=== PATIENT | female | born 1935 | race Caucasian/White ===

== ENCOUNTER 2019-07-17 14:43 | Inpatient (IN) | payer MEDICARE ==
--- NOTE | 2019-07-17 15:14 | ED ---
General Adult HPI - General Chief complaint: Neuro Symptoms/Deficit Stated complaint: poss stroke Time Seen by Provider: 07/17/19 14:46 Source: patient, EMS, RN notes reviewed, old records reviewed Mode of arrival: EMS Limitations: altered mental status, physical limitation - History of Present Illness Initial comments: 83-year-old female presenting as transfer from outside facility for evaluation of confusion, expressive aphasia and concern for CVA. Patient had been seen initially for evaluation of confusion which had been present for approximately 48 hours. There was no focal findings on exam. Patient was outside of TPA window. She was evaluated at outside emergency department for suspected CVA and altered mental status and ultimately transferred for neurology evaluation. She has no complaints at the time my evaluation. She does report a fall which occurred several days ago. Uncertain if she hit her head but does not believe she did. Patient had been started on Keflex several days prior with concern for UTI. Denying any symptoms of dysuria, no vomiting, no fever. - Related Data Allergies Allergy/AdvReac Type Severity Reaction Status Date / Time aspirin Allergy Rash/Hives Verified 07/17/19 14:54 cefixime [From Suprax] Allergy Nausea & Verified 07/17/19 14:57 Vomiting ciprofloxacin [From Cipro] Allergy Unknown Verified 07/17/19 14:57 codeine Allergy Swelling Verified 07/17/19 14:57 ibuprofen [From Advil] Allergy Rash/Hives Verified 07/17/19 14:57 methylprednisolone Allergy Nausea & Verified 07/17/19 14:57 Vomiting Penicillins Allergy Rash/Hives Verified 07/17/19 14:57 prochlorperazine Allergy Unknown Verified 07/17/19 14:57 [From Compazine] tetracycline Allergy Rash/Hives Verified 07/17/19 14:57 Review of Systems ROS Statement: Those systems with pertinent positive or pertinent negative responses have been documented in the HPI. ROS Other: All systems not noted in ROS Statement are negative. Past Medical History Past Medical History: Coronary Artery Disease (CAD) History of Any Multi-Drug Resistant Organisms: None Reported Past Surgical History: Heart Catheterization, Hysterectomy Past Psychological History: Depression Smoking Status: Former smoker Past Alcohol Use History: None Reported Past Drug Use History: None Reported General Exam Limitations: altered mental status, physical limitation General appearance: alert Head exam: Present: atraumatic, normocephalic Eye exam: Present: normal appearance, PERRL ENT exam: Present: mucous membranes dry Neck exam: Present: normal inspection. Absent: tenderness, meningismus Respiratory exam: Present: normal lung sounds bilaterally. Absent: respiratory distress, wheezes Cardiovascular Exam: Present: regular rate, normal rhythm GI/Abdominal exam: Present: soft. Absent: distended, tenderness Extremities exam: Present: normal inspection, normal capillary refill. Absent: pedal edema Neurological exam: Present: alert, oriented X3, other (Mild dysarthria and expressive aphasia, no unilateral findings.). Absent: motor sensory deficit Psychiatric exam: Present: normal affect, normal mood Skin exam: Present: warm, dry, intact. Absent: cyanosis, diaphoretic Course Vital Signs 07/17/19 07/17/19 14:46 15:12 Temperature 97.9 F Pulse Rate 76 76 Respiratory 18 18 Rate Blood Pressure 187/76 168/71 O2 Sat by Pulse 97 97 Oximetry EKG Findings - EKG Comments: EKG Findings:: EKG: Normal sinus rhythm, rate of 81, WA interval 144, QRS duration 72, QTC 455, no ST segment elevation Medical Decision Making - Medical Decision Making 83-year-old female presenting for evaluation of dysarthria and expressive aphasia which is been ongoing for 48 hours. Patient sent for evaluation of CVA. Workup was reviewed from outside hospital, CT was performed which showed old frontal infarct, no acute intracranial hemorrhage or mass effect. Patient had white blood cell count 6.6, hemoglobin 11.6. Creatinine of 1.41 uncertain of baseline creatinine. Sodium was 1:30, lactic acid of 1.2. Urinalysis was negative for infection. Review the medical record I did not see any antiplatelet medication given and the patient does have history of aspirin ALLERGY I will give Plavix in the emergency department. She will be admitted with neurology on consult. I discussed case with Dr. Elizondo who will accept admission. Disposition Clinical Impression: Cerebrovascular accident (CVA) Disposition: ADMITTED IP TO THIS HOSP Condition: Stable Is patient prescribed a controlled substance at d/c from ED?: No Referrals: Rolando Thompson MD [Primary Care Provider] - 1-2 days Decision to Admit Reason: Admit from EC Decision Date: 07/17/19 Decision Time: 15:14
[2019-07-17] MEDS ORDERED: CLOPIDOGREL 75 MG TAB PO STA (15:19)
[2019-07-17] MEDS: ACETAMINOPHEN TAB 325 MG TAB PO PRN (15:49)
[2019-07-17] MEDS: SODIUM CHLORIDE 0.9% 1,000 ML IV SCH (16:42)
--- NOTE | 2019-07-17 17:17 | US ---
EXAMINATION TYPE: US carotid duplex BILAT DATE OF EXAM: 07/17/2019 COMPARISON: NONE CLINICAL HISTORY: 83-year-old female Stenosis. TECHNIQUE: Carotid duplex ultrasound examination. Indirect Doppler criteria was utilized. EXAM MEASUREMENTS: RIGHT: Peak Systolic Velocity (PSV) cm/sec ----- Right CCA: 64.4 ----- Right ICA: 111.3 ----- Right ECA: 87.4 ICA/CCA ratio: 1.7 RIGHT: End Diastole cm/sec ----- Right CCA: 21.8 ----- Right ICA: 35.6 ----- Right ECA: 4.5 LEFT: Peak Systolic Velocity (PSV) cm/sec ----- Left CCA: 88.5 ----- Left ICA: 124.6 ----- Left ECA: 52.2 ICA/CCA ratio: 1.4 LEFT: End Diastole cm/sec ----- Left CCA: 18.4 ----- Left ICA: 35.3 ----- Left ECA: 0.0 VERTEBRALS (direction of flow): Right Vertebral: Antegrade Left Vertebral: Antegrade Rhythm: Normal Mother'S Helper notes: Mild atherosclerotic changes with no significant velocity elevations. IMPRESSION: No hemodynamically significant internal carotid artery stenosis on either side. Criteria for Assigning % of Stenosis / Diameter reduction (Estimation based on the indirect measurements of the internal carotid artery velocities (ICA PSV). 1. Normal (no stenosis)=ICA PSV < 125 cm/s: ratio < 2.0: ICA EDV<40 cm/s. 2. Less than 50% stenosis=ICA PSV < 125 cm/s: ratio < 2.0: ICA EDV<40 cm/s. 3. 50 to 69% stenosis=ICA PSV of 125 to 230 cm/s: ration 2.0 ? 4.0: ICA EDV 40-100 cm/s. 4. Greater than 70% stenosis to near occlusion= ICA PSV > 230 cm/s: ratio > 4.0: ICA EDV > 100 cm/s. 5. Near occlusion= ICA PSV velocities may be low or undetectable: variable ratio and ICA EDV. 6. Total occlusion=unable to detect flow.
[2019-07-17] MEDS ORDERED: ALBUTEROL NEBULIZED 2.5 MG/3 ML INHALATION PRN (18:09)
--- NOTE | 2019-07-17 19:16 | P.CNNES ---
History of Present Illness Consult date: 07/17/19 Requesting physician: Jose Anderson Reason for Consult: CVA History of Present Illness: Patient is a 83-year-old female, who presented to [facility] today at 10:27 AM for confusion and altered mental status. I spoke to patient's daughter on the phone, who provided the history. She states that patient has been fairly well, until last Saturday on 07/13/2019, patient's daughter noticed that she was slightly confused disoriented. She thought that she may be having some UTI. She took her to primary doctor and was started on antibiotics. She took it for a few days but no improvement. Her daughter also notices that mom was doing some strange things like talking to herself, taking the medications out and misplacing it. Last night patient couldn't sleep, and was very restless. She also suffered from a fall last night but did not hit her head. Patient's daughter has not noticed any slurred speech, facial droop, focal numbness tingling or weakness. Due to persistent confusion, she brought her to the hospital. Patient's daughter states that besides this past few days, her mentation has been normal with no signs of dementia. Patient had computed tomography scan of the brain which revealed chronic white matter ischemic change. 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 Carotid Doppler showed no hemodynamically significant stenosis of the either ICA. Antegrade flow in both vertebral arteries. Chest x-ray was normal. UA negative. CBC with hemoglobin 11.6, hematocrit 35.9. WBC 6.65 normal, platelets 252. Sodium 130 potassium 3.8, BUN 29 creatinine 1.41. AST is mildly elevated 51, ALT 48 also mildly elevated. Lactic acid normal 1.2. Covid negative. Patient has no history of tobacco use, denies diabetes or hypertension. Patient's daughter states that she is ALLERGIC to aspirin, unsure of the reaction. Review of Systems Patient continues to complain about being confused. Patient is extremely hard of hearing. Denies headache. Past Medical History Past Medical History: Coronary Artery Disease (CAD) History of Any Multi-Drug Resistant Organisms: None Reported Past Surgical History: Heart Catheterization, Hysterectomy Past Psychological History: Depression Smoking Status: Former smoker Past Alcohol Use History: None Reported Past Drug Use History: None Reported - Past Family History Mother Additional Family Medical History / Comment(s): afer breaking hip Father Family Medical History: Cancer Additional Family Medical History / Comment(s): liver cancer Medications and Allergies Home Medications Medication Instructions Recorded Confirmed Type Albuterol Sulfate [Ventolin HFA] 2 puff INHALATION RT-QID PRN 07/17/19 07/17/19 History Diazepam [Valium] 5 mg PO BID PRN 07/17/19 07/17/19 History Famotidine [Pepcid] 20 mg PO BID 07/17/19 07/17/19 History Furosemide [Lasix] 20 mg PO DAILY 07/17/19 07/17/19 History Gabapentin [Neurontin] 100 mg PO TID 07/17/19 07/17/19 History Latanoprost [Xalatan 0.005%] 1 drop BOTH EYES HS 07/17/19 07/17/19 History Loratadine [Claritin] 5 mg PO DAILY 07/17/19 07/17/19 History Zolpidem [Ambien] 10 mg PO HS 07/17/19 07/17/19 History Allergies Allergy/AdvReac Type Severity Reaction Status Date / Time aspirin Allergy Rash/Hives Verified 07/17/19 17:33 cefixime [From Suprax] Allergy Nausea & Verified 07/17/19 17:33 Vomiting ciprofloxacin [From Cipro] Allergy Unknown Verified 07/17/19 17:33 codeine Allergy Swelling Verified 07/17/19 17:33 ibuprofen [From Advil] Allergy Rash/Hives Verified 07/17/19 17:33 methylprednisolone Allergy Nausea & Verified 07/17/19 17:33 Vomiting Penicillins Allergy Rash/Hives Verified 07/17/19 17:33 prochlorperazine Allergy Unknown Verified 07/17/19 17:33 [From Compazine] tetracycline Allergy Rash/Hives Verified 07/17/19 17:33 Physical Examination - Vital Signs Vital Signs: Vital Signs Temp Pulse Pulse Resp BP BP Pulse Ox 07/17/19 16:30 97.6 F 73 16 177/77 96 07/17/19 15:56 98 F 84 18 176/80 95 07/17/19 15:53 84 18 176/80 95 07/17/19 15:12 76 18 168/71 97 07/17/19 15:10 76 18 168/71 97 07/17/19 14:46 97.9 F 76 18 187/76 97 Intake and Output 07/17/19 07/17/19 07/17/19 06:59 14:59 22:59 Other: Weight 49.895 kg On examination patient is an elderly female, who appears to be very nervous, keeps on stating that she is very confused. She is coughing. Patient is extremely hard of hearing. She did not bring her hearing aids. Patient states it's the month of July and the year is 2019. She knows that she is in the hospital but does not know the name. She states that she is in [facility]. Speech and language functions appears normal. She has some hoarse voice. On cranial examination pupils are round and reactive to light. Visual landry could not be tested. Face is symmetric and tongue protrudes in midline. Muscle strength appears equal bilaterally. Patient did not cooperate with testing of the lower extremities. Reflexes are 1+ and plantars are withdrawal bilaterally. No obvious ataxia. No pronator drift. No myoclonic jerks or asterixis. No significant tremors. Assessment and Plan Assessment: * 83-year-old female admitted with altered mental status, mental confusion, likely due to encephalopathy. Rule out occult infection or other metabolic dysfunction. Patient's examination is nonfocal. Some concern about expressive aphasia. Rule out stroke TIA. No definitive clinical evidence of CVA at this time. * Hypertension Plan: * We will check B12, folate, TSH * Patient had a normal carotid Doppler. * 2-D echo has been ordered. * MRI of the brain, rule out CVA. * Patient is ALLERGIC to aspirin. Patient has received 1 dose of Plavix 75 mg in the ER. Consider continuing Plavix if no medical contraindication. * Consider repeating chest x-ray in a.m., if the cough persists. * Dr. Brennan will be covering over the weekend.
[2019-07-17] MEDS: FAMOTIDINE 20 MG TAB PO SCH (20:28)
[2019-07-17] MEDS: GABAPENTIN 100 MG CAP PO SCH (20:28)
--- NOTE | 2019-07-17 22:27 | P.HPIM ---
History of Present Illness H&P Date: 07/17/19 Chief Complaint: confusion, expressive aphasia and concern for CVA 83-year-old female presenting as transfer from outside facility for evaluation of confusion, expressive aphasia and concern for CVA. Patient had been seen initially for evaluation of confusion which had been present for approximately 48 hours. There was no focal findings on exam. Patient was outside of TPA window. She was evaluated at outside emergency department for suspected CVA and altered mental status and ultimately transferred for neurology evaluation. She has no complaints at the time my evaluation. She does report a fall which occurred several days ago. Uncertain if she hit her head but does not believe she did. Patient had been started on Keflex several days prior with concern for UTI. Denying any symptoms of dysuria, no vomiting, no fever. Patient had computed tomography scan of the brain which revealed chronic white matter ischemic change. 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 Carotid Doppler showed no hemodynamically significant stenosis of the either ICA. Antegrade oswald w in both vertebral arteries. Chest x-ray was normal. UA negative. CBC with hemoglobin 11.6, hematocrit 35.9. WBC 6.65 normal, platelets 252. Sodium 130 potassium 3.8, BUN 29 creatinine 1.41. AST is mildly elevated 51, ALT 48 also mildly elevated. Lactic acid normal 1.2. Covid negative. Review of Systems Constitutional: Denies chills, Denies fever Eyes: denies blurred vision, denies loss of vision Cardiovascular: Denies chest pain, Denies palpitations Respiratory: Denies cough with sputum, Denies dyspnea Gastrointestinal: Denies abdominal pain, Denies nausea, Denies vomiting Genitourinary: Reports as per HPI Musculoskeletal: Reports gait dysfunction, Denies arm numbness/tingling Integumentary: Denies color changes, Denies rash Neurological: Reports aphasia, Reports confusion, Reports weakness Endocrine: Denies cold intolerance, Denies heat intolerance, Denies proptosis Past Medical History Past Medical History: Coronary Artery Disease (CAD) History of Any Multi-Drug Resistant Organisms: None Reported Past Surgical History: Heart Catheterization, Hysterectomy Additional Past Surgical History / Comment(s): cardiac stent, left ear drum repair, both cataracts surgery Past Anesthesia/Blood Transfusion Reactions: No Reported Reaction Past Psychological History: Depression Smoking Status: Former smoker Past Alcohol Use History: None Reported Past Drug Use History: None Reported - Past Family History Mother Additional Family Medical History / Comment(s): afer breaking hip Father Family Medical History: Cancer Additional Family Medical History / Comment(s): liver cancer Medications and Allergies Home Medications Medication Instructions Recorded Confirmed Type Albuterol Sulfate [Ventolin HFA] 2 puff INHALATION RT-QID PRN 07/17/19 07/17/19 History Diazepam [Valium] 5 mg PO BID PRN 07/17/19 07/17/19 History Famotidine [Pepcid] 20 mg PO BID 07/17/19 07/17/19 History Furosemide [Lasix] 20 mg PO DAILY 07/17/19 07/17/19 History Gabapentin [Neurontin] 100 mg PO TID 07/17/19 07/17/19 History Latanoprost [Xalatan 0.005%] 1 drop BOTH EYES HS 07/17/19 07/17/19 History Loratadine [Claritin] 5 mg PO DAILY 07/17/19 07/17/19 History Zolpidem [Ambien] 10 mg PO HS 07/17/19 07/17/19 History Allergies Allergy/AdvReac Type Severity Reaction Status Date / Time aspirin Allergy Rash/Hives Verified 07/17/19 17:33 cefixime [From Suprax] Allergy Nausea & Verified 07/17/19 17:33 Vomiting ciprofloxacin [From Cipro] Allergy Unknown Verified 07/17/19 17:33 codeine Allergy Swelling Verified 07/17/19 17:33 ibuprofen [From Advil] Allergy Rash/Hives Verified 07/17/19 17:33 methylprednisolone Allergy Nausea & Verified 07/17/19 17:33 Vomiting Penicillins Allergy Rash/Hives Verified 07/17/19 17:33 prochlorperazine Allergy Unknown Verified 07/17/19 17:33 [From Compazine] tetracycline Allergy Rash/Hives Verified 07/17/19 17:33 Physical Exam Vitals: Vital Signs Temp Pulse Pulse Resp BP BP Pulse Ox 07/17/19 16:30 97.6 F 73 16 177/77 96 07/17/19 15:56 98 F 84 18 176/80 95 07/17/19 15:53 84 18 176/80 95 07/17/19 15:12 76 18 168/71 97 07/17/19 15:10 76 18 168/71 97 07/17/19 14:46 97.9 F 76 18 187/76 97 Intake and Output 07/17/19 07/17/19 07/17/19 06:59 14:59 22:59 Other: Voiding Method Incontinent # Voids 1 Weight 49.895 kg 49.895 kg Limitations: altered mental status, physical limitation General appearance: alert Head exam: Present: atraumatic, normocephalic Eye exam: Present: normal appearance, PERRL ENT exam: Present: mucous membranes dry Neck exam: Present: normal inspection. Absent: tenderness, meningismus Respiratory exam: Present: normal lung sounds bilaterally. Absent: respiratory distress, wheezes Cardiovascular Exam: Present: regular rate, normal rhythm GI/Abdominal exam: Present: soft. Absent: distended, tenderness Extremities exam: Present: normal inspection, normal capillary refill. Absent: pedal edema Neurological exam: Present: alert, oriented X3, other (Mild dysarthria and expressive aphasia, no unilateral findings.). Absent: motor sensory deficit Psychiatric exam: Present: normal affect, normal mood Skin exam: Present: warm, dry, intact. Absent: cyanosis, diaphoretic Thrombosis Risk Factor Assmnt - Choose All That Apply Each Factor Represents 1 point: Medical pt on bed rest Each Risk Factor Represents 3 Points: Age 75 years or older Each Risk Factor Represents 5 Points: Stroke (< 1 month) Thrombosis Risk Factor Assessment Total Risk Factor Score: 9 Thrombosis Risk Factor Assessment Level: High Risk Assessment and Plan Assessment: 1. TIV vs CVA - 83-year-old female admitted with altered mental status, mental confusion, likely due to encephalopathy. - Neurology on board and recommending to rule out occult infection or other metabolic dysfunction. Patient's examination is nonfocal. Some concern about expressive aphasia. Rule out stroke TIA. No definitive clinical evidence of CVA at this time. - check B12, folate, TSH; Patient had a normal carotid Doppler; 2-D echo has been ordered; MRI of the brain, rule out CVA. - Patient is ALLERGIC to aspirin. Patient has received 1 dose of Plavix 75 mg in the ER. Neurology recommending to continue Plavix if no medical contraindication. 2. Uncontrolled Hypertension; patient not on any anti-hypertensive therapy; we'll monitor BP closely and start meds if BP remains elevated 3. Cough; will repeat Cxray in am; order blood and sputum culture 4. Allergies/ Asthma; continue with claritin and home inhaler therapy DVT prophylaxis; SCDs for now; s/q heparin in next 24 hrs CODE STATUS; full code
[2019-07-17] MEDS: LATANOPROST 0.005% OPHTH DROPS 2.5 ML BTL BOTH EYES SCH (22:35)
[2019-07-18] MEDS: SODIUM CHLORIDE 0.9% 1,000 ML IV SCH ×3 (03:30→23:29)
[2019-07-18 07:20] LABS: Basophils % (A) 0 %; Eosinophils # (A) 0.2 k/uL (0-0.7); Eosinophils % (A) 3 %; HCT 35.5 % (34.0-46.0); HGB 11.2 gm/dL (11.4-16.0); Lymphocytes # (A) 1.8 k/uL (1.0-4.8); Lymphocytes % (A) 31 %; MCH 29.9 pg (25.0-35.0); MCHC 31.7 g/dL (31.0-37.0); MCV 94.3 fL (80.0-100.0); Mean Platelet Volume 7.3; Monocytes # (A) 0.5 k/uL (0-1.0); Monocytes % (A) 9 %; Neutrophils # (A) 3.1 k/uL (1.3-7.7); Neutrophils % (A) 52 %; Platelet Count 249 k/uL (150-450); RBC 3.76 m/uL (3.80-5.40); RDW 12.8 % (11.5-15.5); WBC 5.9 k/uL (3.8-10.6)
[2019-07-18 07:38] LABS: Albumin 3.7 g/dL (3.5-5.0); Calcium 9.2 mg/dL (8.4-10.2); Potassium 4.4 mmol/L (3.5-5.1); Total Bilirubin 0.5 mg/dL (0.2-1.3)
[2019-07-18] MEDS: LORATADINE 10 MG TAB PO SCH (09:02)
[2019-07-18] MEDS: GABAPENTIN 100 MG CAP PO SCH ×3 (09:02→23:30)
[2019-07-18] MEDS: FAMOTIDINE 20 MG TAB PO SCH (09:02)
--- NOTE | 2019-07-18 09:20 | XR ---
EXAMINATION TYPE: XR chest 1V DATE OF EXAM: 07/18/2019 HISTORY: Cough. REFERENCE: Previous study dated 07/17/2019. FINDINGS: There is a persistent dextroscoliosis. The lungs are overinflated but clear. Pleural space are clear. Heart is upper limits of normal in siz e. IMPRESSION: COPD.
[2019-07-18] MEDS: ACETAMINOPHEN TAB 325 MG TAB PO PRN ×2 (13:37→20:03)
--- NOTE | 2019-07-18 13:37 | MR ---
EXAMINATION TYPE: MR brain wo con DATE OF EXAM: 07/18/2019 1:28 PM. COMPARISON: NONE. HISTORY: Expressive aphasia. Technique: Multiplanar, multiecho imaging of the brain was obtained without intravenous contrast. FINDINGS: The study is compromised by patient motion artifact. Repeated series were performed. Midline structures are unremarkable. There is a normal craniocervical junction. Echoplanar diffusion imaging shows no areas of restricted diffusion. There are normal vascular flow voids. The orbits are unremarkable. There is no evidence of a CP angle mass lesion. There is both punctate and confluent periventricular white matter change likely on the basis of small vessel disease and chronic ischemia. No acute focal lesion, mass effect or midline shift is seen. I do not see evidence of intracranial blood. There is evidence of an old lacunar infarct in the superio r longitudinal colliculus anteriorly in the left frontal region. There is no mass effect, midline mark anthony ft or intracranial blood. IMPRESSION: 1. NO ACUTE INTRACRANIAL ABNORMALITY. 2. BOTH PUNCTATE AND CONFLUENT PERIVENTRICULAR WHITE MATTER CHANGE LIKELY ON THE BASIS SMALL VESSEL D ISEASE AND CHRONIC ISCHEMIA. 3. EVIDENCE OF A LACUNAR INFARCT IN THE SUPERIOR LONGITUDINAL FASCICULUS ANTERIORLY IN THE LEFT FRONT AL LOBE.
[2019-07-18 13:40] LABS: Hemoglobin A1C 5.6 % (4.0-6.0)
--- NOTE | 2019-07-18 13:58 | ECHOF ---
Referral Reason:Thrombus MEASUREMENTS -------- HEIGHT: 160.0 cm WEIGHT: 49.9 kg BP: RVIDd: 2.0 cm (< 3.3) IVSd: 1.3 cm (0.6 - 1.1) LVIDd: 2.4 cm (3.9 - 5.3) LVPWd: 1.3 cm (0.6 - 1.1) IVSs: 1.4 cm LVIDs: 1.6 cm LVPWs: 1.5 cm LAESV Index (A-L): 27.40 ml/m Ao Diam: 2.0 cm (2.0 - 3.7) AV Cusp: 1.6 cm (1.5 - 2.6) LA Diam: 2.2 cm (2.7 - 3.8) MV EXCURSION: 11.974 mm (> 18.000) MV EF SLOPE: 54 mm/s (70 - 150) EPSS: 0.3 cm MV E Kingston: 1.11 m/s MV DecT: 191 ms MV A Kingston: 0.86 m/s MV E/A Ratio: 1.29 AR PHT: 346 ms RAP: 5.00 mmHg RVSP: 39.53 mmHg FINDINGS -------- Sinus rhythm. This was a technically good study. The left ventricular size is normal. There is moderate concentric left ventricular hypertrophy. O verall left ventricular systolic function is normal with, an EF between 55 - 60 %. The right ventricle is normal in size. The left atrial size is normal. Normal LA size by volume 22+/-6 ml/m2. The right atrial size is normal. The aortic valve is trileaflet and appears structurally normal. There is mild aortic regurgitation. The mitral valve is normal. Mild mitral regurgitation is present. The tricuspid valve appears structurally normal. Mild tricuspid regurgitation present. There is m ild pulmonary hypertension. The right ventricular systolic pressure, as measured by Doppler, is 39. 53mmHg. There is no pulmonic regurgitation present. The aortic root size is normal. Normal inferior vena cava with normal inspiratory collapse consistent with estimated right atrial pre ssure of 5 mmHg. There is no pericardial effusion. CONCLUSIONS -------- 1. Sinus rhythm. 2. This was a technically good study. 3. The left ventricular size is normal. 4. There is moderate concentric left ventricular hypertrophy. 5. Overall left ventricular systolic function is normal with, an EF between 55 - 60 %. 6. The right ventricle is normal in size. 7. The left atrial size is normal. 8. Normal LA size by volume 22+/-6 ml/m2. 9. The right atrial size is normal. 10. The aortic valve is trileaflet and appears structurally normal. 11. There is mild aortic regurgitation. 12. The mitral valve is normal. 13. Mild mitral regurgitation is present. 14. The tricuspid valve appears structurally normal. 15. Mild tricuspid regurgitation present. 16. There is mild pulmonary hypertension. 17. The right ventricular systolic pressure, as measured by Doppler, is 39.53mmHg. 18. There is no pulmonic regurgitation present. 19. The aortic root size is normal. 20. Normal inferior vena cava with normal inspiratory collapse consistent with estimated right atrial pressure of 5 mmHg. 21. There is no pericardial effusion. INFORMATION TECHNOLOGY ACCOUNT MANAGER: Marissa Gary RDCS
--- NOTE | 2019-07-18 16:00 | P.PN ---
Subjective Progress Note Date: 07/18/19 Principal diagnosis: Altered mental status; CVA versus TIA 83-year-old female presenting as transfer from outside facility for evaluation of confusion, expressive aphasia and concern for CVA. Patient had been seen initially for evaluation of confusion which had been present for approximately 48 hours. 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 Sepsis workup has been negative so far We will continue to hydrate patient and monitor renal function and electrolytes; consult PT/OT Above was discussed with patient's daughter in great detail Objective - Vital Signs Vital signs: Vital Signs Temp 98.3 F 07/18/19 09:04 Pulse 74 07/18/19 09:06 Resp 18 07/18/19 11:24 BP 182/77 07/18/19 09:04 Pulse Ox 98 07/18/19 09:04 Intake & Output 07/17/19 07/18/19 07/18/19 18:59 06:59 18:59 Intake Total 240 Output Total 2 Balance 238 Weight 49.895 kg Intake: Oral 240 Output: Urine 2 Other: Voiding Method Incontinent Incontinent Incontinent # Voids 1 1 1 # Bowel Movements 2 - Exam General appearance: alert Head exam: Present: atraumatic, normocephalic Eye exam: Present: normal appearance, PERRL ENT exam: Present: mucous membranes dry Neck exam: Present: normal inspection. Absent: tenderness, meningismus Respiratory exam: Present: normal lung sounds bilaterally. Absent: respiratory distress, wheezes Cardiovascular Exam: Present: regular rate, normal rhythm GI/Abdominal exam: Present: soft. Absent: distended, tenderness Extremities exam: Present: normal inspection, normal capillary refill. Absent: pedal edema Neurological exam: Present: alert, oriented X3, other (Mild dysarthria and expressive aphasia, no unilateral findings.). Absent: motor sensory deficit Psychiatric exam: Present: normal affect, normal mood Skin exam: Present: warm, dry, intact. Absent: cyanosis, diaphoretic - Labs CBC & Chem 7: 07/18/19 06:24 07/18/19 06:24 Labs: Abnormal Lab Results - Last 24 Hours (Table) 07/18/19 07/18/19 Range/Units 06:24 06:24 RBC 3.76 L (3.80-5.40) m/uL Hgb 11.2 L (11.4-16.0) gm/dL Sodium 135 L (137-145) mmol/L BUN 26 H (7-17) mg/dL Creatinine 1.19 H (0.52-1.04) mg/dL AST 53 H (14-36) U/L ALT 45 H (4-34) U/L HDL Cholesterol 90 H (40-60) mg/dL Assessment and Plan Assessment: 1. TIV vs CVA - 83-year-old female admitted with altered mental status, mental confusion, likely due to encephalopathy. - Neurology on board and recommending to rule out occult infection or other metabolic dysfunction. Patient's examination is nonfocal. Some concern about expressive aphasia. Rule out stroke TIA. No definitive clinical evidence of C VA at this time. - check B12, folate, TSH; Patient had a normal carotid Doppler; 2-D echo has been ordered; MRI of the brain, rule out CVA. - Patient is ALLERGIC to aspirin. Patient has received 1 dose of Plavix 75 mg in the ER. Neurology recommending to continue Plavix if no medical contraindication. 2. Uncontrolled Hypertension; patient not on any anti-hypertensive therapy; we'll monitor BP closely and start meds if BP remains elevated 3. Cough; will repeat Cxray in am; order blood and sputum culture 4. Allergies/ Asthma; continue with claritin and home inhaler therapy DVT prophylaxis; SCDs for now; s/q heparin in next 24 hrs CODE STATUS; full code
--- NOTE | 2019-07-18 18:01 | P.PN ---
Subjective Progress Note Date: 07/18/19 The patient is an 83-year-old female who was seen in neurologic follow-up on July 18, 2019, via teleneurology. History is obtained entirely from the chart. The patient tells me that she has fallen 3 times. She is unable to provide any other history. Objective - Vital Signs Vital signs: Vital Signs Temp 98.3 F 07/18/19 09:04 Pulse 74 07/18/19 09:06 Resp 18 07/18/19 11:24 BP 182/77 07/18/19 09:04 Pulse Ox 98 07/18/19 09:04 Intake & Output 07/17/19 07/18/19 07/18/19 18:59 06:59 18:59 Intake Total 240 Output Total 2 Balance 238 Weight 49.895 kg Intake: Oral 240 Output: Urine 2 Other: Voiding Method Incontinent Incontinent Incontinent # Voids 1 1 1 # Bowel Movements 2 - Exam Gen.: The patient is reclining in the bed. She is well-nourished, well- developed and in no acute distress. HEENT: Head is atraumatic, normocephalic. Fundus not visualized. There is no scleral icterus. Heart: Regular rate and rhythm Neurological examination Mental status: The patient is able to tell me her name, date of , age and current year. She is able to name objects. The patient's speech at times is nonsensical. Patient has word finding difficulties. There also seems to be some evidence of receptive aphasia. The patient has difficulty following commands. Cranial nerves: Pupils are equal, round and reactive to light. Visual landry are full to confrontation. Extraocular muscles are intact. There is no facial asymmetry. Hearing is markedly diminished. Motor: Strength is 5/5 throughout Coordination: Finger to nose testing is intact - Labs CBC & Chem 7: 07/18/19 06:24 07/18/19 06:24 Labs: Abnormal Lab Results - Last 24 Hours (Table) 07/18/19 07/18/19 Range/Units 06:24 06:24 RBC 3.76 L (3.80-5.40) m/uL Hgb 11.2 L (11.4-16.0) gm/dL Sodium 135 L (137-145) mmol/L BUN 26 H (7-17) mg/dL Creatinine 1.19 H (0.52-1.04) mg/dL AST 53 H (14-36) U/L ALT 45 H (4-34) U/L HDL Cholesterol 90 H (40-60) mg/dL Assessment and Plan Assessment: Impressions: 1. Mental status changes with intermittent receptive and expressive aphasia-per nursing and patient's daughter, this is new. MRI of the brain reports an old infarct, no sign of acute infarct. I did review the images. I am not convinced that this infarct is old 2. Marked hearing loss 3. Unremarkable carotid Doppler and echocardiogram Plan: Recommendations: 1. Will order EEG Time with Patient: Greater than 30 (spent 40 minutes with patient via teleneurology)
[2019-07-18] MEDS: LATANOPROST 0.005% OPHTH DROPS 2.5 ML BTL BOTH EYES SCH (20:04)
[2019-07-19 07:28] LABS: Basophils % (A) 0 %; Eosinophils # (A) 0.2 k/uL (0-0.7); Eosinophils % (A) 2 %; HCT 37.3 % (34.0-46.0); HGB 11.9 gm/dL (11.4-16.0); Lymphocytes # (A) 1.3 k/uL (1.0-4.8); Lymphocytes % (A) 16 %; MCH 30.1 pg (25.0-35.0); Mean Platelet Volume 7.2; Monocytes # (A) 0.7 k/uL (0-1.0); Monocytes % (A) 8 %; Neutrophils # (A) 5.8 k/uL (1.3-7.7); Neutrophils % (A) 72 %; Platelet Count 266 k/uL (150-450); RBC 3.97 m/uL (3.80-5.40); RDW 12.5 % (11.5-15.5); WBC 8.2 k/uL (3.8-10.6)
[2019-07-19 07:54] LABS: Albumin 4.1 g/dL (3.5-5.0); Bilirubin,Unconjugated 0.6 mg/dL (0.0-1.1); Calcium 9.6 mg/dL (8.4-10.2); Potassium 4.1 mmol/L (3.5-5.1); Total Bilirubin 0.5 mg/dL (0.2-1.3); Total Protein 7.4 g/dL (6.3-8.2)
[2019-07-19] MEDS: SODIUM CHLORIDE 0.9% 1,000 ML IV SCH ×2 (09:36→20:54)
[2019-07-19] MEDS: GABAPENTIN 100 MG CAP PO SCH ×3 (09:38→20:42)
[2019-07-19] MEDS: LORATADINE 10 MG TAB PO SCH (09:38)
[2019-07-19] MEDS: FAMOTIDINE 20 MG TAB PO SCH (09:39)
[2019-07-19] MEDS ORDERED: levETIRAcetam IV 1,000 MG in SALINE 1 100ML.BAG IVPB STA (17:54)
--- NOTE | 2019-07-19 17:59 | P.PN ---
Subjective Progress Note Date: 07/19/19 Principal diagnosis: Altered mental status; CVA versus TIA 83-year-old female presenting as transfer from outside facility for evaluation of confusion, expressive aphasia and concern for CVA. Patient had been seen initially for evaluation of confusion which had been present for approximately 48 hours. 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 Sepsis workup has been negative so far We will continue to hydrate patient and monitor renal function and electrolytes; consult PT/OT Above was discussed with patient's daughter in great detail 07/20/2019 Patient is seen and evaluated in room at bedside; continues to have intermittent episodes of expressive aphasia; MRI was reviewed showing no acute infarct; neurology has seen patient and doubt old infarct either; workup with carotid Doppler and echocardiogram is unremarkable; lab review shows slight worsening of B UN/creatinine from 26/1.9 up to 23/1.29- patient remains on normal saline at a rate of 100 mL an hour; recommend nephro consult if B UN/creatinine continued to trend up; AST/ALT trending up to 57/47; patient will continue on current management; neurology is recommending EEG for further evaluation Objective - Vital Signs Vital signs: Vital Signs Temp 97.8 F 07/19/19 08:00 Pulse 83 07/19/19 12:00 Resp 16 07/19/19 12:00 BP 161/73 07/19/19 12:00 Pulse Ox 97 07/19/19 12:00 Intake & Output 07/18/19 07/19/19 07/19/19 18:59 06:59 18:59 Intake Total 540 180 Output Total 2 200 200 Balance 538 -20 -200 Weight 33.5 kg 33.5 kg Intake: Oral 540 180 Output: Urine 2 200 200 Other: Voiding Method Incontinent Incontinent Diaper Incontinent # Voids 4 1 1 - Exam General appearance: alert Head exam: Present: atraumatic, normocephalic Eye exam: Present: normal appearance, PERRL ENT exam: Present: mucous membranes dry Neck exam: Present: normal inspection. Absent: tenderness, meningismus Respiratory exam: Present: normal lung sounds bilaterally. Absent: respiratory distress, wheezes Cardiovascular Exam: Present: regular rate, normal rhythm GI/Abdominal exam: Present: soft. Absent: distended, tenderness Extremities exam: Present: normal inspection, normal capillary refill. Absent: pedal edema Neurological exam: Present: alert, oriented X3, other (Mild dysarthria and expressive aphasia, no unilateral findings.). Absent: motor sensory deficit Psychiatric exam: Present: normal affect, normal mood Skin exam: Present: warm, dry, intact. Absent: cyanosis, diaphoretic - Labs CBC & Chem 7: 07/19/19 07:00 07/19/19 07:00 Labs: Abnormal Lab Results - Last 24 Hours (Table) 07/19/19 Range/Units 07:00 Sodium 135 L (137-145) mmol/L BUN 23 H (7-17) mg/dL Creatinine 1.29 H (0.52-1.04) mg/dL AST 57 H (14-36) U/L ALT 47 H (4-34) U/L Alkaline Phosphatase 129 H (38-126) U/L Microbiology - Last 24 Hours (Table) 07/17/19 23:15 Blood Culture - Preliminary Blood No Growth after 24 hours Assessment and Plan Assessment: 1. TIV vs CVA - 83-year-old female admitted with altered mental status, mental confusion, likely due to encephalopathy. - Neurology on board and recommending to rule out occult infection or other metabolic dysfunction. Patient's examination is nonfocal. Some concern about expressive aphasia. Rule out stroke TIA. No definitive clinical evidence of CVA at this time. - check B12, folate, TSH; Patient had a normal carotid Doppler; 2-D echo has been ordered; MRI of the brain, rule out CVA. - Patient is ALLERGIC to aspirin. Patient has received 1 dose of Plavix 75 mg in the ER. Neurology recommending to continue Plavix if no medical contraindication. 2. Uncontrolled Hypertension; patient not on any anti-hypertensive therapy; we'll monitor BP closely and start meds if BP remains elevated 3. Cough; will repeat Cxray in am; order blood and sputum culture 4. Allergies/ Asthma; continue with claritin and home inhaler therapy DVT prophylaxis; SCDs for now; s/q heparin in next 24 hrs CODE STATUS; full code
[2019-07-19] MEDS: ACETAMINOPHEN TAB 325 MG TAB PO PRN (20:43)
[2019-07-19] MEDS: LATANOPROST 0.005% OPHTH DROPS 2.5 ML BTL BOTH EYES SCH (20:50)
[2019-07-20] MEDS: SODIUM CHLORIDE 0.9% 1,000 ML IV SCH ×3 (05:12→23:29)
[2019-07-20 05:45] LABS: Basophils % (A) 1 %; Eosinophils # (A) 0.2 k/uL (0-0.7); Eosinophils % (A) 3 %; HGB 11.1 gm/dL (11.4-16.0); Lymphocytes # (A) 1.5 k/uL (1.0-4.8); Lymphocytes % (A) 21 %; MCH 30.6 pg (25.0-35.0); MCHC 31.8 g/dL (31.0-37.0); MCV 96.2 fL (80.0-100.0); Mean Platelet Volume 7.2; Monocytes # (A) 0.7 k/uL (0-1.0); Monocytes % (A) 9 %; Neutrophils # (A) 4.6 k/uL (1.3-7.7); Neutrophils % (A) 64 %; Platelet Count 243 k/uL (150-450); RBC 3.64 m/uL (3.80-5.40); RDW 12.7 % (11.5-15.5); WBC 7.2 k/uL (3.8-10.6)
[2019-07-20 06:15] LABS: Potassium 4.5 mmol/L (3.5-5.1)
[2019-07-20] MEDS: GABAPENTIN 100 MG CAP PO SCH ×3 (07:49→21:32)
[2019-07-20] MEDS: LORATADINE 10 MG TAB PO SCH (07:49)
[2019-07-20] MEDS: FAMOTIDINE 20 MG TAB PO SCH (07:49)
[2019-07-20] MEDS ORDERED: levETIRAcetam 500 MG TAB PO SCH (09:00)
--- NOTE | 2019-07-20 14:31 | P.PN ---
Subjective Progress Note Date: 07/20/19 Principal diagnosis: Altered mental status; CVA versus TIA 83-year-old female presenting as transfer from outside facility for evaluation of confusion, expressive aphasia and concern for CVA. Patient had been seen initially for evaluation of confusion which had been present for approximately 48 hours. 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 Sepsis workup has been negative so far We will continue to hydrate patient and monitor renal function and electrolytes; consult PT/OT Above was discussed with patient's daughter in great detail 07/19/2019 Patient is seen and evaluated in room at bedside; continues to have intermittent episodes of expressive aphasia; MRI was reviewed showing no acute infarct; neuro logy has seen patient and doubt old infarct either; workup with carotid Doppler and echocardiogram is unremarkable; lab review shows slight worsening of B UN/creatinine from 26/1.9 up to 23/1.29- patient remains on normal saline at a rate of 100 mL an hour; recommend nephro consult if B UN/creatinine continued to trend up; AST/ALT trending up to 57/47; patient will continue on current management; neurology is recommending EEG for further evaluation 07/20/2019 Patient is seen and evaluated in follow-up today and continues to have episodes of brocha's aphasia. Neurology following. Patient awaiting to have EEG today. Per nursing staff patient had tonic-clonic seizure last night that was wit nessed. Patient remains on Keppra that was initiated by neurology. Patient is extremely hard of hearing and does have hearing aids but per nursing staff patient tends to throw them away often and they are being placed in a container on the counter. Patient was up working with physical therapy and able to walk with only standby assistance. Objective - Vital Signs Vital signs: Vital Signs Temp 97.4 F L 07/20/19 13:30 Pulse 82 07/20/19 13:30 Resp 18 07/20/19 13:30 BP 158/88 07/20/19 13:30 Pulse Ox 96 07/20/19 07:47 Intake & Output 07/19/19 07/20/19 07/20/19 18:59 06:59 18:59 Intake Total 100 360 Output Total 200 200 Balance -100 -200 360 Weight 33.5 kg 45.5 kg Intake: Oral 100 360 Output: Urine 200 200 Other: Voiding Method Diaper Diaper Diaper Incontinent Incontinent Incontinent # Voids 2 1 1 - Exam General appearance: alert, awake, sitting up in the chair Head exam: Present: atraumatic, normocephalic Eye exam: Present: normal appearance, PERRL ENT exam: Present: mucous membranes moist Neck exam: Present: normal inspection. Absent: tenderness, meningismus Respiratory exam: Present: normal lung sounds bilaterally with no wheezing or rhonchi noted. Cardiovascular Exam: Present: regular rate, normal rhythm GI/Abdominal exam: Present: soft, nontender, nondistended Extremities exam: Present: normal inspection, normal capillary refill, no pedal edema noted Neurological exam: Present: alert, oriented X3, other (Mild dysarthria and expressive aphasia, no unilateral findings.). Absent: motor sensory deficit Psychiatric exam: Present: normal affect, normal mood Skin exam: Present: warm, dry, intact, no cyanosis noted - Labs CBC & Chem 7: 07/20/19 04:41 07/20/19 04:41 Labs: Abnormal Lab Results - Last 24 Hours (Table) 07/20/19 07/20/19 Range/Units 04:41 04:41 RBC 3.64 L (3.80-5.40) m/uL Hgb 11.1 L (11.4-16.0) gm/dL Sodium 135 L (137-145) mmol/L Carbon Dioxide 18 L (22-30) mmol/L BUN 24 H (7-17) mg/dL Creatinine 1.19 H (0.52-1.04) mg/dL Glucose 68 L (74-99) mg/dL Microbiology - Last 24 Hours (Table) 07/17/19 23:15 Blood Culture - Preliminary Blood No Growth after 48 hours Assessment and Plan Assessment: -TIA vs CVA: Patient admitted with altered mental status, mental confusion, possibly due to encephalopathy. MRI showed punctate and confluent periventricular white matter changes most likely due to small vessel disease or chronic ischemia, evidence of a lacunar infarct in the superior longitudinal fasciculus anteriorly in the left frontal lobe that was documented as an old infarct although neurology is unsure if this is an old infarct or new. No evidence of intracranial bleed, mass effect, or midline shift is noted. Patient awaiting EEG today. 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 Patient was initiated on Keppra -Uncontrolled Hypertension; patient not on any anti-hypertensive therapy; we'll monitor BP closely and start meds if BP remains elevated -Cough; history of asthma not in any acute exacerbation -Allergies/ Asthma; continue with claritin and home inhaler therapy -DVT prophylaxis; SCDs for now; early ambulation -CODE STATUS; full code Plan: To continue with current medications and management. Maintain seizure precautions. Neurology following and awaiting EEG. Appreciate neurology input on Plavix initiation. Patient was given a dose in the ER and patient is noted to have an aspirin ALLERGY. Will continue to monitor closely. Further recommendations to follow.
--- NOTE | 2019-07-20 17:19 | EEG ---
ELECTROENCEPHALOGRAM REPORT HISTORY: This is an inpatient EEG performed on an 83-year-old female with a known history for hypertension who presented to the emergency room for increasing altered mental status. The patient's imaging studies show evidence of a lacunar infract in the left frontal lobe. The patient has not had witnessed clinical seizures but has significant work- finding difficulty and is not oriented to time, place and person. Patient is currently on Keppra 500 mg q.12. Metabolic derangement also was noted on admission with acute kidney injury and elevated creatinine. TECHNICAL REPORT: This is an inpatient EEG performed on the [employer] EEG monitor with electrodes placed according to the international 10 - 12 system in a single EKG channel. Simultaneous video EEG monitor was performed. Photic stimulation was performed. Hyperventilation was not performed. The recording begins with excessive motion and movement artifact making it difficult to interpret throughout the study. During rare moments of guilefulness, a low voltage 7 to 8 Hz background rhythm was noted that appeared to be symmetric. No abnormalities were noted during photic stimulation. No abnormalities were noted in the EKG. No sleep was achieved during the study and overall, the study was difficult to interpret due to excessive motion and movement artifact. IMPRESSION: This was a technically difficult study due to excessive motion and movement artifact. The brief periods there were interpretable, were associated with a drowsy white background of 8 to 7 Hz that appeared symmetric. No abnormalities were noted during photic stimulation. No abnormalities were noted in the EKG. CLINICAL CORRELATION: This EEG should be interpreted with caution. A normal wake only EEG does not preclude an underlying seizure tendency as further clinical correlation is needed. If clinically indicated, serial EEGs and or more remote prolonged overnight study could provide additional information. MMODL / IJN: [id number] /
--- NOTE | 2019-07-20 18:23 | P.PN ---
Subjective Progress Note Date: 07/20/19 Principal diagnosis: Altered mental status Subjective: The nurse reports patient is more alert today but still has significant word finding difficulty. She appears to make [place] attempted comprehensive day. Patient still has significant word finding difficulty and cannot say where she is at but when you ask her if she in the hospital she will replied yes affirmative. A detailed history was again obtained to the daughter who reports that over the past year her mother has been relatively stable however within the last 2 months she did require using a cane. Her overall baseline mental function for her age is fairly stable. She took a turn about 2 weeks ago. Her daughter noted that she was having more difficulty writing and that her handwriting was not legible. Her overall baseline activities included her being able to do most of her own self care. She was able to feed [place] cleanup after the cats. She would not cook on her own but would be able to help the family with preparation. Last Saturday her daughter reports that she found her talking to herself and when she went into her room to see if there had been anything occurring she reports that that's when she noticed her diary head in eligible writing. Her daughter reports that she has been on and off taking zolpidem 10 mg which is a dose that is advocated against by the FDA for women as it can cause altered mental status. Her daughter does admit that there may be times when her mother may have taken more than she should have so overdosing on zolpidem would not be out of the question. On June 13 the patient was seen by her primary care physician and treated for an ear infection on antibiotics for 10 days. This was the left ear. Next para patient does have a history of shingles about 10 years ago occurring on the left side of her chest. She has not had any recent episodes. Objective - Vital Signs Vital signs: Vital Signs Temp 97.9 F 07/20/19 16:00 Pulse 79 07/20/19 16:00 Resp 16 07/20/19 16:00 BP 157/81 07/20/19 16:00 Pulse Ox 97 07/20/19 16:00 Intake & Output 07/19/19 07/20/19 07/20/19 18:59 06:59 18:59 Intake Total 100 360 Output Total 200 200 Balance -100 -200 360 Weight 33.5 kg 45.5 kg Intake: Oral 100 360 Output: Urine 200 200 Other: Voiding Method Diaper Diaper Diaper Incontinent Incontinent Incontinent # Voids 2 1 2 # Bowel Movements 0 - Exam EEG was completed today. This was a technically difficult study and primarily consisted of wakefulness. The overall background however her Diu within normal range for her age. A follow-up EEG is recommended preferably one neck and acquire sleep. Neurological exam: Mental status: Patient is awake alert distractible. Speech: Mild dysarthria noted. Patient is unable to answer questions correctly. She is unable to express herself consistent with an expressive aphasia. There is also some receptive component noted. Pupils: 2 mm equally reactive to light and accommodation. Cranial nerves: Patient is able to track there is no nystagmus noted on vertical horizontal gaze. Face appears symmetric. Palate elevates symmetrically. Tongue appears midline without fasciculations or deviation. Cranial nerve VIII appears intact by clinical observation the patient is hard of hearing. Motor examination: No resting tremor noted. There is mild increased tone noted on passive range of motion in the upper extremities bilaterally. Patient appears to move all 4 extremities equally. No fasciculations noted. There is distal wasting noted in the hands and feet bilaterally. Deep tendon reflexes: Unable to elicit. Next Sensory examination: Formal exam deferred due to patient's mental status. Gait examination: Patient is able to transfer from sitting to standing and ambulate with assistance. Her gait is wide-based slightly ataxic. - EENT Ears: right: dull, scarring, other (Bruising noted on the inner ear on the left. No discharge noted. No evidence of any overt herpetic lesions.), left: erythema, fluid - Labs CBC & Chem 7: 07/20/19 04:41 07/20/19 04:41 Labs: Abnormal Lab Results - Last 24 Hours (Table) 07/20/19 07/20/19 Range/Units 04:41 04:41 RBC 3.64 L (3.80-5.40) m/uL Hgb 11.1 L (11.4-16.0) gm/dL Sodium 135 L (137-145) mmol/L Carbon Dioxide 18 L (22-30) mmol/L BUN 24 H (7-17) mg/dL Creatinine 1.19 H (0.52-1.04) mg/dL Glucose 68 L (74-99) mg/dL Microbiology - Last 24 Hours (Table) 07/17/19 23:15 Blood Culture - Preliminary Blood No Growth after 48 hours Assessment and Plan Assessment: 83-year-old female brought in by her family for increasing confusion and change in mentation over the past week. 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 The echo is pending. B12 folate and TSH levels appear within normal levels. The C-reactive protein however is elevated her liver enzymes. There is for concern history overtaking zolpidem especially at the dose prescribed (10mg!!) which was determined since 2016 not appropriate dosing for women. . Zolpidem is known for acute altered mental status changes especially in women. This patient's symptoms also could be related to her current symptoms of of aphasia primarily expressive. There is no evidence at this time of any infectious process occurring. Patient has been afebrile there is no elevation in white count or left shift. Metabolic encephalopathy however should still be considered within the differential and an ammonia level will be ordered today due to her liver enzymes still being elevated. On my examination I do not see any evidence of a herpetic lesion however if she has any further clinical deterioration I would strongly recommend starting empirically acyclovir and proceed with a lumbar puncture to rule out encephalitic process. Patient should have no further zolpidem during this admission or as a home meds. Plan: Recommendations: 1. Continue with stroke management. Continue with antiplatelet therapy and statin therapy. Follow up with ECHO. 2. Blood pressure management: Maintain systolic blood pressure between 120 and 1:30. Diastolic blood pressure between 80 and 90. For any hypotension or prolonged hypertension. 3. Avoid hyper-and hypoglycemia. 4. Continue with PT OT and speech therapy. 5. Stat ammonia level. 6. Monitor closely with neurochecks every 4 hours. Any acute deterioration patient should obtain a stat computed tomography scan of the head noncontrast to rule out possible increasing intracranial pressure or hemorrhagic conversion. 7. MRA of the head and neck without contrast to rule out any high-grade steno sis/large vessel occlusion 8. Maintain aspiration precautions due to patient's mentation. Maintain soft mechanical diet. 9. If there is any further details clinical deterioration patient should und ergo a lumbar puncture and consider empirically starting acyclovir. Would recommend the hospitals also to further evaluate the inner ear on examination. The right ear appeared quite dull unscarred and the left ear which was the ear she had an ear infection, appear to have a fluid level behind it and was quite painful when examining. Suspect there could still be chronic otitis involving the left ear. 10. Avoid sedative-hypnotics 11. Consider follow up EEG with sleep This patient's prognosis remains guarded. Neurology will continue follow the case daily and make recommendations as the case evolves.
[2019-07-20] MEDS: LATANOPROST 0.005% OPHTH DROPS 2.5 ML BTL BOTH EYES SCH (21:32)
[2019-07-21] MEDS: LORATADINE 10 MG TAB PO SCH (09:04)
[2019-07-21] MEDS: FAMOTIDINE 20 MG TAB PO SCH (09:04)
[2019-07-21] MEDS: GABAPENTIN 100 MG CAP PO SCH ×3 (09:04→20:14)
[2019-07-21] MEDS ORDERED: LORazepam 0.5 MG TAB PO STA (09:15)
[2019-07-21 09:40] LABS: Basophils % (A) 0 %; Eosinophils # (A) 0.2 k/uL (0-0.7); Eosinophils % (A) 2 %; HCT 35.6 % (34.0-46.0); HGB 11.3 gm/dL (11.4-16.0); Lymphocytes # (A) 0.9 k/uL (1.0-4.8); Lymphocytes % (A) 12 %; MCH 30.3 pg (25.0-35.0); MCHC 31.7 g/dL (31.0-37.0); MCV 95.6 fL (80.0-100.0); Mean Platelet Volume 8.3; Monocytes # (A) 0.6 k/uL (0-1.0); Monocytes % (A) 8 %; Neutrophils % (A) 76 %; Platelet Count 216 k/uL (150-450); RBC 3.72 m/uL (3.80-5.40); WBC 7.8 k/uL (3.8-10.6)
[2019-07-21 09:51] LABS: Calcium 9.1 mg/dL (8.4-10.2); Potassium 4.3 mmol/L (3.5-5.1)
[2019-07-21] MEDS ORDERED: LORazepam 2 MG/ML INJ IV STA (10:48)
--- NOTE | 2019-07-21 14:25 | P.PN ---
Subjective Progress Note Date: 07/21/19 Principal diagnosis: Altered mental status; CVA versus TIA 83-year-old female presenting as transfer from outside facility for evaluation of confusion, expressive aphasia and concern for CVA. Patient had been seen initially for evaluation of confusion which had been present for approximately 48 hours. 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 Sepsis workup has been negative so far We will continue to hydrate patient and monitor renal function and electrolytes; consult PT/OT Above was discussed with patient's daughter in great detail 07/19/2019 Patient is seen and evaluated in room at bedside; continues to have intermittent episodes of expressive aphasia; MRI was reviewed showing no acute infarct; neuro logy has seen patient and doubt old infarct either; workup with carotid Doppler and echocardiogram is unremarkable; lab review shows slight worsening of B UN/creatinine from 26/1.9 up to 23/1.29- patient remains on normal saline at a rate of 100 mL an hour; recommend nephro consult if B UN/creatinine continued to trend up; AST/ALT trending up to 57/47; patient will continue on current management; neurology is recommending EEG for further evaluation 07/20/2019 Patient is seen and evaluated in follow-up today and continues to have episodes of brocha's aphasia. Neurology following. Patient awaiting to have EEG today. Per nursing staff patient had tonic-clonic seizure last night that was wit nessed. Patient remains on Keppra that was initiated by neurology. Patient is extremely hard of hearing and does have hearing aids but per nursing staff patient tends to throw them away often and they are being placed in a container on the counter. Patient was up working with physical therapy and able to walk with only standby assistance. 07/21/2019 Patient is seen in follow-up today and continues to have aphasia and extreme restlessness and agitation. Keppra was discontinued by neurology. No further seizure-like activity noted per nursing staff. Patient awaiting to receive an MRA today and was given a one-time dose of Ativan IV push as patient is extremely agitated and restless. Sodium remains at 135 and creatinine is 0.99 with a BUN of 21. Patient underwent EEG yesterday showing a limited study due to movement although underlying seizure tendency was not noted although serial EEGs should be considered. Awaiting and appreciate neurology recommendations for anti-platelet and statin therapy. Patient is to receive an MRA and currently awaiting report. Objective - Vital Signs Vital signs: Vital Signs Temp 97.7 F 07/21/19 04:00 Pulse 79 07/21/19 04:00 Resp 17 07/21/19 04:00 BP 171/74 07/21/19 04:00 Pulse Ox 96 07/21/19 04:00 Intake & Output 07/20/19 07/21/19 07/21/19 18:59 06:59 18:59 Intake Total 570 120 Balance 570 120 Weight 56.5 kg Intake: Oral 570 120 Other: Voiding Method Diaper Diaper Incontinent Incontinent # Voids 2 1 2 # Bowel Movements 0 1 0 - Exam General appearance: alert, awake, sitting up in the chair, anxious, restless, fidgeting Head exam: Present: atraumatic, normocephalic Eye exam: Present: normal appearance, PERRL ENT exam: Present: mucous membranes moist Neck exam: Present: normal inspection. No JVD noted Respiratory exam: Present: normal lung sounds bilaterally with no wheezing or rhonchi noted. Cardiovascular Exam: Present: regular rate, normal rhythm GI/Abdominal exam: Present: soft, nontender, nondistended Extremities exam: Present: normal inspection, normal capillary refill, no pedal edema noted Neurological exam: Present: alert, oriented X3, other (Mild dysarthria and expressive aphasia, no unilateral findings.). Absent: motor sensory deficit Psychiatric exam: Present: normal affect, normal mood Skin exam: Present: warm, dry, intact, no cyanosis noted - Labs CBC & Chem 7: 07/21/19 09:27 07/21/19 09:27 Labs: Abnormal Lab Results - Last 24 Hours (Table) 07/21/19 07/21/19 Range/Units 09:27 09:27 RBC 3.72 L (3.80-5.40) m/uL Hgb 11.3 L (11.4-16.0) gm/dL Lymphocytes # 0.9 L (1.0-4.8) k/uL Sodium 135 L (137-145) mmol/L BUN 21 H (7-17) mg/dL Glucose 111 H (74-99) mg/dL Microbiology - Last 24 Hours (Table) 07/17/19 23:15 Blood Culture - Preliminary Blood No Growth after 72 hours Assessment and Plan Assessment: -TIA vs CVA: Patient admitted with altered mental status, mental confusion, possibly due to encephalopathy. MRI showed punctate and confluent periventricular white matter changes most likely due to small vessel disease or chronic ischemia, evidence of a lacunar infarct in the superior longitudinal fasciculus anteriorly in the left frontal lobe that was documented as an old infarct although neurology is unsure if this is an old infarct or new. No evidence of intracranial bleed, mass effect, or midline shift is noted. EEG was done yesterday although a lot of movement artifact noted recommending repeat serial EEG. Patient scheduled to undergo MRA which is pending at this time. Will await report. 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 Patient was initiated on Keppra. Neurology discontinued Keppra yesterday. -Uncontrolled Hypertension; patient not on any anti-hypertensive therapy; we'll monitor BP closely and start meds if BP remains elevated -Cough; history of asthma not in any acute exacerbation -Allergies/ Asthma; continue with claritin and home inhaler therapy -DVT prophylaxis; SCDs for now; early ambulation -CODE STATUS; full code Plan: To continue with current medications and management. Neurology following and awaiting MRA. Appreciate neurology input on Plavix and statin initiation. Patient was given a dose in the ER and patient is noted to have an aspirin ALLERGY. Will continue to monitor closely. Further recommendations to follow.
[2019-07-21] MEDS: ACETAMINOPHEN TAB 325 MG TAB PO PRN (20:14)
[2019-07-21] MEDS: LATANOPROST 0.005% OPHTH DROPS 2.5 ML BTL BOTH EYES SCH (20:14)
--- NOTE | 2019-07-21 21:00 | P.PN ---
Subjective Progress Note Date: 07/21/19 Principal diagnosis: altered mental status subjective: 2 attempts made today to obtain neuroimaging studies. Patient was quite sedated after Ativan. Unable to fully examine patient and assess clinically. Aspiration precautions are in place had elevated 30 with close monitoring of patient's mental status. Objective - Vital Signs Vital signs: Vital Signs Temp 97.5 F L 07/21/19 20:00 Pulse 90 07/21/19 20:00 Resp 18 07/21/19 20:00 BP 148/65 07/21/19 20:00 Pulse Ox 100 07/21/19 20:00 Intake & Output 07/21/19 07/21/19 07/22/19 06:59 18:59 06:59 Intake Total 120 Balance 120 Weight 56.5 kg Intake: Oral 120 Other: Voiding Method Diaper Diaper Diaper Incontinent Incontinent Incontinent # Voids 1 0 # Bowel Movements 1 0 - Exam objective: Chart reviewed. Patient's exam was minimal due to being quite asleep from the Ativan dose. Patient received a total of 0.5 mg by mouth on initial attempt at the MRI and 1 mg IV for the second attempt. Vital signs are stable patient is afebrile. - Labs CBC & Chem 7: 07/21/19 09:27 07/21/19 09:27 Labs: Abnormal Lab Results - Last 24 Hours (Table) 07/21/19 07/21/19 Range/Units 09:27 09:27 RBC 3.72 L (3.80-5.40) m/uL Hgb 11.3 L (11.4-16.0) gm/dL Lymphocytes # 0.9 L (1.0-4.8) k/uL Sodium 135 L (137-145) mmol/L BUN 21 H (7-17) mg/dL Glucose 111 H (74-99) mg/dL Microbiology - Last 24 Hours (Table) 07/17/19 23:15 Blood Culture - Preliminary Blood No Growth after 72 hours Assessment and Plan Assessment: This is a 83-year-old female being evaluated for persistent altered mental status. The patient underwent 2 attempts today for an MRA of the head and neck without contrast to rule out any high-grade intracranial or extracranial stenosis. Her exam today was limited due to her being quite sleepy from the Ativan. The MRA of report is still not available yet and pending. After reviewing the history closely with her daughter this patient's baseline mental function has been declining since May. Her daughter describes somewhat of a stepwise progression of the mental status which is consistent with a vascular dementia. I suspect based on this history that this is highly suspicious for evolving dementia. If the MRA of the head does not show any evid ence of high-grade stenosis and the patient continues to have persistent decline in mental status would consider an LP to rule out possible underlying low-grade encephalitis. The MRI performed does not show evidence of an acute ischemic infarct however there is evidence of a lacunar infarct in the left frontal lobe. Due to this patient's elevated creatinine at this time makes it difficult to proceed with an MRI of the brain with contrast to exclude this is possibly a structural mass lesion. I reviewed the MRI and agree with the findings at this time this does appear to be more likely a lacunar infarct in superior longitudinal fasciculus anterior to the left frontal lobe. Recommendations 1. Continue with every 2 hour neurochecks 2. Follow up with MRA of the head and neck in a.m. 3. Aspiration precautions due to patient's current state lethargy. 4. If the MRA of the head and neck is unremarkable consider a lumbar puncture to rule out low-grade encephalitis. 5. Consider repeat EEG. 6. continue with family meeting to discuss patient's care and overall prognosis. 7. the patient's ALLERGY for aspirin patient is unable to be placed on antiplatelet therapy for stroke prevention at this time. This patient's prognosis remains guarded. Further recommendations will be made as this case evolves. Neurology will be following the patient daily.
[2019-07-22 04:44] VITALS: RESP 18
[2019-07-22] MEDS: SODIUM CHLORIDE 0.9% 1,000 ML IV SCH ×3 (04:47→17:24)
[2019-07-22] MEDS: FAMOTIDINE 20 MG TAB PO SCH (09:21)
[2019-07-22] MEDS: ACETAMINOPHEN TAB 325 MG TAB PO PRN ×2 (09:21→19:39)
[2019-07-22] MEDS: LORATADINE 10 MG TAB PO SCH (09:21)
[2019-07-22] MEDS: GABAPENTIN 100 MG CAP PO SCH ×3 (09:21→20:56)
[2019-07-22 10:44] VITALS: BMI 18.3
--- NOTE | 2019-07-22 14:32 | P.PN ---
Subjective Progress Note Date: 07/22/19 Principal diagnosis: Altered mental status; CVA versus TIA 83-year-old female presenting as transfer from outside facility for evaluation of confusion, expressive aphasia and concern for CVA. Patient had been seen initially for evaluation of confusion which had been present for approximately 48 hours. 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 Sepsis workup has been negative so far We will continue to hydrate patient and monitor renal function and electrolytes; consult PT/OT Above was discussed with patient's daughter in great detail 07/19/2019 Patient is seen and evaluated in room at bedside; continues to have intermittent episodes of expressive aphasia; MRI was reviewed showing no acute infarct; neuro logy has seen patient and doubt old infarct either; workup with carotid Doppler and echocardiogram is unremarkable; lab review shows slight worsening of B UN/creatinine from 26/1.9 up to 23/1.29- patient remains on normal saline at a rate of 100 mL an hour; recommend nephro consult if B UN/creatinine continued to trend up; AST/ALT trending up to 57/47; patient will continue on current management; neurology is recommending EEG for further evaluation 07/20/2019 Patient is seen and evaluated in follow-up today and continues to have episodes of brocha's aphasia. Neurology following. Patient awaiting to have EEG today. Per nursing staff patient had tonic-clonic seizure last night that was wit nessed. Patient remains on Keppra that was initiated by neurology. Patient is extremely hard of hearing and does have hearing aids but per nursing staff patient tends to throw them away often and they are being placed in a container on the counter. Patient was up working with physical therapy and able to walk with only standby assistance. 07/21/2019 Patient is seen in follow-up today and continues to have aphasia and extreme restlessness and agitation. Keppra was discontinued by neurology. No further seizure-like activity noted per nursing staff. Patient awaiting to receive an MRA today and was given a one-time dose of Ativan IV push as patient is extremely agitated and restless. Sodium remains at 135 and creatinine is 0.99 with a BUN of 21. Patient underwent EEG yesterday showing a limited study due to movement although underlying seizure tendency was not noted although serial EEGs should be considered. Awaiting and appreciate neurology recommendations for anti-platelet and statin therapy. Patient is to receive an MRA and currently awaiting report. 07/22/2019 Patient is seen and evaluated in follow-up today and appears to be much more alert and responding appropriately to questions and commands without hesitation. Patient is up and walking with physical therapy around the room with no difficulties and just standby assist. Patient was supposed to undergo an MRA yesterday and had 2 attempts at it but was quite anxious and restless requiring sedation. Patient was quite sedated last night. No acute overnight events. No reports of any seizure-like activity noted by nursing staff. Neurology is following. No reports of chest pain, shortness of breath, or palpitations. Patient is afebrile. No reports of nausea or vomiting and patient is tolerating dysphagia 3 Diet. Objective - Vital Signs Vital signs: Vital Signs Temp 96.5 F L 07/22/19 08:00 Pulse 83 07/22/19 08:00 Resp 18 07/22/19 04:00 BP 164/68 07/22/19 08:00 Pulse Ox 98 07/22/19 08:00 Intake & Output 07/21/19 07/22/19 07/22/19 18:59 06:59 18:59 Intake Total 120 240 Output Total 300 200 Balance 120 -300 40 Weight 47 kg 47 kg Intake: Oral 120 240 Output: Urine 300 200 Other: Voiding Method Diaper Diaper Diaper Incontinent Incontinent Incontinent # Voids 0 1 1 # Bowel Movements 0 1 - Exam General appearance: alert, awake, walking around the room, responding appropriately to questions and having normal conversation. Head exam: Present: atraumatic, normocephalic Eye exam: Present: normal appearance, PERRL ENT exam: Present: mucous membranes moist Neck exam: Present: normal inspection. No JVD noted Respiratory exam: Present: normal lung sounds bilaterally with no wheezing or rhonchi noted. Cardiovascular Exam: Present: regular rate, normal rhythm GI/Abdominal exam: Present: soft, nontender, nondistended Extremities exam: Present: normal inspection, normal capillary refill, no pedal edema noted Neurological exam: Present: alert, oriented X3, responding appropriately to questions and commands Absent: motor sensory deficit Psychiatric exam: Present: normal affect, normal mood, calm and cooperative Skin exam: Present: warm, dry, intact, no cyanosis noted - Labs CBC & Chem 7: 07/21/19 09:27 07/21/19 09:27 Labs: Microbiology - Last 24 Hours (Table) 07/17/19 23:15 Blood Culture - Preliminary Blood No Growth after 96 hours Assessment and Plan Assessment: -TIA vs CVA: Patient admitted with altered mental status, mental confusion, possibly due to encephalopathy. MRI showed punctate and confluent periventricular white matter changes most likely due to small vessel disease or chronic ischemia, evidence of a lacunar infarct in the superior longitudinal fasciculus anteriorly in the left frontal lobe that was documented as an old infarct although neurology is unsure if this is an old infarct or new. No evidence of intracranial bleed, mass effect, or midline shift is noted. EEG was done yesterday although a lot of movement artifact noted recommending repeat serial EEG. 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 Patient was initiated on Keppra. Neurology discontinued Keppra yesterday. -Uncontrolled Hypertension; patient not on any anti-hypertensive therapy; we'll monitor BP closely and start meds if BP remains elevated -Cough; history of asthma not in any acute exacerbation -Allergies/ Asthma; continue with claritin and home inhaler therapy -DVT prophylaxis; SCDs for now; early ambulation -CODE STATUS; full code Plan: To continue with current medications and management. Neurology following and awaiting MRA. Due to patient's aspirin ALLERGY patient not initiated on any antiplatelet medication at this time. Patient's aphasia significantly improved and able to converse without hesitation and responded poorly to questions and commands. Patient was with daughter Albina and will be returning home with home care once stabilized and discharged and cleared by neurology. Will continue to monitor closely. Further recommendations to follow.
[2019-07-22] MEDS: LATANOPROST 0.005% OPHTH DROPS 2.5 ML BTL BOTH EYES SCH (20:56)
--- NOTE | 2019-07-22 23:26 | PN ---
PROGRESS NOTE NEUROLOGY PROGRESS NOTE: DATE OF SERVICE: 07/22/2019 SUBJECTIVE: The patient appears much improved today. She has been interacting appropriately with staff, ambulating with assistance. Patient's speech has been improving. The patient reports she too has noted an improvement and still has some slight difficulty in word- finding, but reports that she does feel better. OBJECTIVE: Patient examined and chart reviewed. No clear indication at this time in records whether or not the MRA of the head and neck was completed. This patient underwent twice the imaging studies. The first attempt was with 0.5 mg p.o. of Ativan. This was not enough to sedate the patient to be cooperative. The patient then went down again with 1 mg of Ativan IV. After that study, the patient was sedated for most of the evening and this morning has been back to what appears to be her baseline functioning. EXAMINATION: Vital signs are stable, afebrile. MENTAL STATUS: Awake, alert. Speech is fluent. She is oriented to person and place but not to time. Several times the patient did have a struggle finding certain words. But overall there is a dramatic robust response from yesterday. Pupils: 2 mm, equally reactive to light and accommodation. Cranial nerve examination: The patient tracks well. There is no nystagmus on vertical or horizontal gaze. Face appears symmetric. Palate elevates symmetrically. Cranial nerve 8 appears intact by clinical observation. Shoulder shrug symmetric. Motor examination: The patient moves all 4 extremities equally. Pronator drift is negative. No tremors or fasciculations noted. Xkzett-or-iyvy testing: No dysmetria noted on [id number] testing. Sensory examination: Grossly intact to light touch throughout. Deep tendon reflexes: Plus two over the biceps, brachioradialis, and +1 over the triceps bilaterally. Ankle jerks are absent bilaterally. Patellar reflexes are absent bilaterally. Plantar responses are flexor bilaterally. No ankle clonus is elicited. ASSESSMENT AND RECOMMENDATIONS: This is an 83-year-old female who presented with significant word-finding difficulty and altered mental status. On her admission she was determined to have had a lacunar infarct that did not appear to be acute in nature. Initially the patient was considered to have had possibly seizure activity. An EEG was obtained which did not show evidence of seizure activity. Currently the patient is returning back to her baseline function and her speech has greatly improved today. Recommendations are as follows: 1. Follow up on whether or not the MRA was completed. If for whatever reason it was not completed, would not recommend sending the patient back down again at this time with Ativan, as she appears to be quite sensitive to the dosing. 2. This patient can be prepared for discharge either home or to a residential facility where she can receive closer supervision of medications, OT, PT and speech. 3. If patient is discharged home, she should be closely followed by Neurology as an outpatient and continue to receive OT, PT and speech therapy as outpatient. 4. Continue with neuro checks now at q.4 hours while awake. 5. Continue with current home medications. This patient has made significant improvement clinically over the last 24 hours. The patient will still be followed closely by Neurology and prepare for soon discharge planning. RAUL / TOBY: [id number] / MTDD
[2019-07-23] MEDS: SODIUM CHLORIDE 0.9% 1,000 ML IV SCH ×2 (05:18→11:57)
[2019-07-23] MEDS: LORATADINE 10 MG TAB PO SCH (08:48)
[2019-07-23] MEDS: GABAPENTIN 100 MG CAP PO SCH (08:48)
[2019-07-23] MEDS: FAMOTIDINE 20 MG TAB PO SCH (08:48)
[2019-07-23 12:04] VITALS: TEMP 98.5
[2019-07-23 15:32] VITALS: BP 173/76; PULSE 85
--- NOTE | 2019-07-24 08:32 | CDI ---
Documentation Clarification Form Date: 07/24/19 From: Bianca Raya Phone: If you have a question about this query, please contact Isabel Walsh, [employer] Maker at [phone] between 8am and 5pm. Admit Date: 07/17/19 Discharge Date: 07/23/19 Patient Name: GAYLA VERNON Visit Number: [id number] ATTENTION: The Clinical Documentation Specialists (CDI) and [facility] Coding Staff appreciate your assistance in clarifying documentation. Please respond to the clarification below the line at the bottom and electronically sign. The CDI & [facility] Coding staff will review the response and follow-up if needed. Please note: Queries are made part of the Legal Health Record. If you have any questions, please contact the author of this message via ITS. Dear , Altered Mental Status was documented in the H&P, consult, Dr Elizondo's PNs, Dr Mckeon's PNs, and Dr Dao's PNs Per Dr Dao's 07/21 PN - On her admission she was determined to have had a lacunar infarct that did not appear to be acute in nature. History/Risk Factors: HTN, CAD, COPD, urinary incontinence, hearing loss Clinical Indicators: Transfer from outside facility for evaluation of confusion, expressive aphasia and concern for CVA. Labs: CRP-<5.0, Procalcitonin-0.05 CT: NO ACUTE INTRACRANIAL ABNORMALITY. BOTH PUNCTATE AND CONFLUENT PERIVENTRICULAR WHITE MATTER CHANGE LIKELY ON THE BASIS SMALL VESSEL DISEASE AND CHRONIC ISCHEMIA. EVIDENCE OF A LACUNAR INFARCT IN THE SUPERIOR LONGITUDINAL FASCICULUS ANTERIORLY IN THE LEFT FRONTAL LOBE. Treatment: check B12, folate, TSH; Patient had a normal carotid Doppler; 2-D echo has been ordered; MRI of the brain, rule out CVA.- Patient is ALLERGIC to aspirin.Patient has received 1 dose of Plavix 75 mg in the ER. Neurology recommending to continue Plavix if no medical contraindication. Patient not on any anti-hypertensive therapy; we'll monitor BP closely and start meds if BP remains elevated In your professional opinion, please clarify the etiology of the Altered Mental Status, aphasia & dysarthria, if known. Small vessel disease of the brain TIA CVA Delirium (specify cause): Dementia (if know, specify Type and if with/without Behavioral Disturbance) Encephalopathy (specify Type and Underlying Medical Illness) Other condition (please specify) Unable to determine See Discharge Summary for response to this query. MTDD
--- NOTE | 2019-07-24 09:44 | P.DS ---
Providers Date of admission: 07/17/19 15:09 Expected date of discharge: 07/23/19 Attending physician: Maxime Bobby Consults: 07/17/19 15:09 Consult Physician Routine Consulting Provider: Juliette Muhammad Consult Reason/Comments: CVA Do you want consulting provider notified?: Yes [facility] Course: Final diagnosis -possible TIA: Patient admitted with altered mental status, mental confusion, possibly due to encephalopathy although low possibility. MRI showed punctate and confluent periventricular white matter changes most likely due to small ve ssel disease or chronic ischemia, evidence of a lacunar infarct in the superior longitudinal fasciculus anteriorly in the left frontal lobe that was documented as an old infarct and not acute at this time. No evidence of intracranial bleed, mass effect, or midline shift is noted. Symptoms resolved. -Brocha's aphasia secondary to above, resolved -Possible Tonic-clonic seizure, new onset ruled out as noted on EEG -Dementia, underlying possibly vascular in nature -Uncontrolled Hypertension -Cough; history of asthma not in any acute exacerbation -Allergies/ Asthma -DVT prophylaxis -Full code Discharge disposition Patient is being discharged in a stable condition with guarded prognosis to home and will continue with home care in the outpatient setting. Patient will follow-up with Dr. Thompson upon discharge. Patient also instructed to follow-up with Dr. Reynolds neurology in one week. Total time taken is 35 minutes. History of present illness This is a 83-year-old female who was recently admitted with confusion, expressive aphasia, and concern for possible CVA versus TIA and was being closely monitored. Currently no reports of chest pain or palpitations. No reports of shortness of breath. Patient denies any nausea or vomiting and has been on a dysphagia 3 diet and tolerating well. Daughter Albina states she will be taking the patient home with her as she now lives with her for continued care and will continue with home care as well for physical therapy and speech therapy. Patient will need to follow-up with primary care provider to monitor blood pressure is slightly elevated during hospitalization. Patient is not currently on any medications for this. During hospitalization patient was quite anxious. Patient will also need close follow-up with neurology and recommended repeat EEGs in the outpatient setting. Patient was scheduled for MRA although unable to perform due to anxiousness and continued movement. During hospitalization patient did undergo an MRI which showed punctate and confluent periventricular white matter changes most likely due to small vessel disease chronic ischemia with evidence of old lacunar infarct in the superior longitudinal fasciculus anteriorly in the left frontal lobe that was possibly due to an old infarct and not acute at this time. Patient's expressive aphasia resolved and was able to converse with no difficulties. Patient is hard of hearing and wears bilateral hearing aids although takes them out often and attempts to throw them away. May be a component of underlying dementia which is possibly vascular in nature. Patient did have an EEG during hospitalization which was suboptimal due to continued movement and artifact noted although no evidence of seizures were noted. Neurology was following the patient closely. As mentioned previously patient will be need close neurology outpatient follow- up. Patient will be discharged today. On exam vital signs are stable. Temp is 98.5F, pulse is 85, respirations are 18, blood pressure is 173/76, oxygen saturation is 97% on room air. Cardio S1, S2 are present. Respiratory shows diminished breath sounds bilaterally with no wheezing or rhonchi noted. Abdomen is soft and nontender. Nervous system shows no focal deficits. Please refer to medication reconciliation sheet for a list of medications. Patient Condition at Discharge: Stable Plan - Discharge Summary New Discharge Prescriptions: Continue Gabapentin [Neurontin] 100 mg PO TID Famotidine [Pepcid] 20 mg PO BID Loratadine [Claritin] 5 mg PO DAILY Latanoprost [Xalatan 0.005%] 1 drop BOTH EYES HS Albuterol Sulfate [Ventolin HFA] 2 puff INHALATION RT-QID PRN PRN Reason: Shortness Of Breath Discontinued Zolpidem [Ambien] 10 mg PO HS Furosemide [Lasix] 20 mg PO DAILY Diazepam [Valium] 5 mg PO BID PRN PRN Reason: panic attacks Discharge Medication List Albuterol Sulfate [Ventolin HFA] 2 puff INHALATION RT-QID PRN 07/17/19 [History] Famotidine [Pepcid] 20 mg PO BID 07/17/19 [History] Gabapentin [Neurontin] 100 mg PO TID 07/17/19 [History] Latanoprost [Xalatan 0.005%] 1 drop BOTH EYES HS 07/17/19 [History] Loratadine [Claritin] 5 mg PO DAILY 07/17/19 [History] Follow up Appointment(s)/Referral(s): [facility], [NON-STAFF] - Lexie Reynolds MD [Medical Doctor] - 1 Week (Call to schedule appointment when offices reopens.) Rolando Thompson MD [Primary Care Provider] - 1-2 days (Teleheath appointment, they will call you with appointment.) Patient Instructions/Handouts: Ischemic Stroke (GEN) Activity/Diet/Wound Care/Special Instructions: Activity Limited until follow-up Continue with dysphagia level III chopped diet Continue to monitor blood pressure and keep a diary of the readings for primary care follow-up. Follow-up with primary care provider upon discharge Follow-up with neurology in one week Continue with home care for physical therapy/speech therapy Discharge Disposition: HOME WITH HOME HEALTH SERVICES
== END 2019-07-23 15:24 | disposition home health service (06) | DRG 69 ==
LOC: EC 14:43 → 3SCARD 15:09
PROVIDERS: ADMIT Hospitalist; ATTEND Hospitalist
DX: G45.9 Transient cerebral ischemic attack, unspecified (principal); G93.41 Metabolic encephalopathy; R47.01 Aphasia; G40.89 Other seizures; I67.89 Other cerebrovascular disease; R47.1 Dysarthria and anarthria; R40.2142 Coma scale, eyes open, spontaneous, at arrival to emergency department; R40.2362 Coma scale, best motor response, obeys commands, at arrival to emergency department; R40.2252 Coma scale, best verbal response, oriented, at arrival to emergency department; F01.50 Vascular dementia, unspecified severity, without behavioral disturbance, psychotic disturbance, mood disturbance, and anxiety; I10 Essential (primary) hypertension; I25.10 Atherosclerotic heart disease of native coronary artery without angina pectoris; J44.9 Chronic obstructive pulmonary disease, unspecified; R32 Unspecified urinary incontinence; F32.9 Major depressive disorder, single episode, unspecified; H91.90 Unspecified hearing loss, unspecified ear; W19.XXXA Unspecified fall, initial encounter; Z79.899 Other long term (current) drug therapy; Z86.73 Personal history of transient ischemic attack (TIA), and cerebral infarction without residual deficits; Z90.710 Acquired absence of both cervix and uterus; Z87.891 Personal history of nicotine dependence; Z95.5 Presence of coronary angioplasty implant and graft; Z86.19 Personal history of other infectious and parasitic diseases; Z97.4 Presence of external hearing-aid; Z98.42 Cataract extraction status, left eye; Z98.41 Cataract extraction status, right eye; Z88.6 Allergy status to analgesic agent; Z88.1 Allergy status to other antibiotic agents; Z88.5 Allergy status to narcotic agent; Z88.0 Allergy status to penicillin; Z88.8 Allergy status to other drugs, medicaments and biological substances; Z80.0 Family history of malignant neoplasm of digestive organs
CPT/HCPCS: 70551; 71045; 80048; 80053; 80061; 80076; 82140; 82607; 82746; 83036; 84145; 84443; 85025; 86140; 87040; 93005; 93306; 93880; 95816; 99285

== ENCOUNTER 2019-10-05 14:46 | Inpatient (IN) | payer MEDICARE ==
--- NOTE | 2019-10-05 15:46 | ED ---
General Adult HPI - General Chief complaint: Neuro Symptoms/Deficit Stated complaint: altered mental Time Seen by Provider: 10/05/19 15:03 Source: patient, EMS Mode of arrival: wheelchair Limitations: altered mental status - History of Present Illness Initial comments: Dictation was produced using [employer] dictation software. please excuse any gramma tical, word or spelling errors. This patient was cared for during a federal and state declared state of emergency secondary to Covid 19 Chief Complaint: 83-year-old female with past medical history of coronary artery disease presents with altered mental status. History of Present Illness: Is an 83-year-old female she is a poor historian. She is brought in by EMS. According to EMS patient would have varying levels of consciousness. It was described to us as 5 minute episodes where she would become unresponsive. She has had these episodes on and off for the last several days. She was initially seen at [facility] where she was admitted for one day and discharged with instructions to follow up with neurologist. They were unable to follow-up with a neurologist yet. According to daughter patient continued having these episodes. They did not want to wait to follow-up with outpatient neurologist and instead centered to the emergency department. Patient has no complaints at this time. It is unclear what patient's baseline mental status is. The ROS documented in this emergency department record has been reviewed and confirmed by me. Those systems with pertinent positive or negative responses have been documented in the HPI. All other systems are other negative and/or noncontributory. PHYSICAL EXAM: General Impression: Alert and oriented x3/4, not in acute distress HEENT: Normocephalic atraumatic, extra-ocular movements intact, pupils equal and reactive to light bilaterally, mucous membranes moist. Cardiovascular: Heart regular rate and rhythm Chest: Able to complete full sentences, no retractions, no tachypnea Abdomen: abdomen soft, non-tender, non-distended, no organomegaly Musculoskeletal: Pulses present and equal in all extremities, no peripheral edema Motor: no focal deficits noted Neurological: CN II-XII grossly intact, no focal motor or sensory deficits noted Skin: Intact with no visualized rashes Psych: Normal affect and mood, strange behavior where she would get surprised and turn her head rapidly ED course: 83-year-old female presents with altered mental status. Upon arrival shows blood pressure 191/79. Rest of vital signs within acceptable limits. Patient is a unreliable historian. She does act very strangely. Patient does not appear lethargic. She follows commands however she is alert and oriented 3 out of 4. She does not have any focal neurologic deficits.Documentation from [facility] was obtained from most previous hospital admission. Patient was recently admitted on 10/02/2019. At that time she is admitted for delirium. She is admitted with hyponatremia, acute kidney injury. She was admitted for a short time and discharged at baseline medical condition. She is provided by hospitalist there who suggested that patient has worsening dementia. Laboratory evaluation obtained. No leukocytosis. Metabolic panel shows sodium 128. No Acidosis. Slight elevation of renal markers. Rest of labs are unremarkable. Brain CT is unremarkable for any acute processes. Chest x-ray shows possible developing infiltrate in the right lower lobe. Patient treated with ceftriaxone and azithromycin. There is some concern of community-acquired pneumonia. Discussed case with Dr. Caban is willing to accept patients care. neurology will be consulted EKG interpretation: Ventricular rate 82, normal sinus rhythm,. Interval 132, QRS 68, QTc 450. No CA prolongation, no QTC prolongation, no ST or T-wave changes noted. EKG compared to July 17 2019 showing no changes. Overall, this EKG is unremarkable - Related Data Home Medications Medication Instructions Recorded Confirmed Albuterol Sulfate [Ventolin HFA] 2 puff INHALATION RT-QID PRN 07/17/19 07/17/19 Famotidine [Pepcid] 20 mg PO BID 07/17/19 07/17/19 Gabapentin [Neurontin] 100 mg PO TID 07/17/19 07/17/19 Latanoprost [Xalatan 0.005%] 1 drop BOTH EYES HS 07/17/19 07/17/19 Loratadine [Claritin] 5 mg PO DAILY 07/17/19 07/17/19 Allergies Allergy/AdvReac Type Severity Reaction Status Date / Time aspirin Allergy Rash/Hives Verified 10/05/19 17:09 cefixime [From Suprax] Allergy Nausea & Verified 10/05/19 17:09 Vomiting ciprofloxacin [From Cipro] Allergy Unknown Verified 10/05/19 17:09 codeine Allergy Swelling Verified 10/05/19 17:09 ibuprofen [From Advil] Allergy Rash/Hives Verified 10/05/19 17:09 methylprednisolone Allergy Nausea & Verified 10/05/19 17:09 Vomiting Penicillins Allergy Rash/Hives Verified 10/05/19 17:09 prochlorperazine Allergy Unknown Verified 10/05/19 17:09 [From Compazine] tetracycline Allergy Rash/Hives Verified 10/05/19 17:09 Review of Systems ROS Statement: Those systems with pertinent positive or pertinent negative responses have been documented in the HPI. ROS Other: All systems not noted in ROS Statement are negative. Past Medical History Past Medical History: Coronary Artery Disease (CAD) History of Any Multi-Drug Resistant Organisms: None Reported Past Surgical History: Heart Catheterization, Hysterectomy Additional Past Surgical History / Comment(s): cardiac stent, left ear drum repair, both cataracts surgery Past Anesthesia/Blood Transfusion Reactions: No Reported Reaction Past Psychological History: Depression Smoking Status: Former smoker Past Alcohol Use History: None Reported Past Drug Use History: None Reported - Past Family History Mother Additional Family Medical History / Comment(s): afer breaking hip Father Family Medical History: Cancer Additional Family Medical History / Comment(s): liver cancer General Exam Limitations: altered mental status Course Vital Signs 10/05/19 14:50 Temperature 98.4 F Pulse Rate 84 Respiratory 18 Rate Blood Pressure 191/79 O2 Sat by Pulse 95 Oximetry Medical Decision Making - Lab Data Result diagrams: 10/05/19 15:43 10/05/19 15:43 Lab Results 10/05/19 10/05/19 Range/Units 15:43 15:43 WBC 5.6 (3.8-10.6) k/uL RBC 3.35 L (3.80-5.40) m/uL Hgb 10.2 L (11.4-16.0) gm/dL Hct 31.6 L (34.0-46.0) % MCV 94.1 (80.0-100.0) fL MCH 30.5 (25.0-35.0) pg MCHC 32.5 (31.0-37.0) g/dL RDW 13.4 (11.5-15.5) % Plt Count 263 (150-450) k/uL Neutrophils % 50 % Lymphocytes % 33 % Monocytes % 8 % Eosinophils % 5 % Basophils % 1 % Neutrophils # 2.8 (1.3-7.7) k/uL Lymphocytes # 1.9 (1.0-4.8) k/uL Monocytes # 0.5 (0-1.0) k/uL Eosinophils # 0.3 (0-0.7) k/uL Basophils # 0.1 (0-0.2) k/uL Sodium 128 L (137-145) mmol/L Potassium 4.6 (3.5-5.1) mmol/L Chloride 98 (98-107) mmol/L Carbon Dioxide 20 L (22-30) mmol/L Anion Gap 10 mmol/L BUN 18 H (7-17) mg/dL Creatinine 1.05 H (0.52-1.04) mg/dL Est GFR (CKD-EPI)AfAm 56 (>60 ml/min/1.73 sqM) Est GFR (CKD-EPI)NonAf 49 (>60 ml/min/1.73 sqM) Glucose 79 (74-99) mg/dL Calcium 9.4 (8.4-10.2) mg/dL Magnesium 2.0 (1.6-2.3) mg/dL Total Bilirubin 0.6 (0.2-1.3) mg/dL AST 33 (14-36) U/L ALT 19 (4-34) U/L Alkaline Phosphatase 150 H (38-126) U/L Total Protein 7.5 (6.3-8.2) g/dL Albumin 4.5 (3.5-5.0) g/dL Disposition Clinical Impression: Acute delirium Disposition: ADMITTED IP TO THIS [facility] Condition: Fair Referrals: Rolando Thompson MD [Primary Care Provider] - 1-2 days Decision Time: 17:16
[2019-10-05 15:53] LABS: Basophils # (A) 0.1 k/uL (0-0.2); Basophils % (A) 1 %; Eosinophils # (A) 0.3 k/uL (0-0.7); Eosinophils % (A) 5 %; HCT 31.6 % (34.0-46.0); HGB 10.2 gm/dL (11.4-16.0); Lymphocytes # (A) 1.9 k/uL (1.0-4.8); Lymphocytes % (A) 33 %; MCH 30.5 pg (25.0-35.0); MCHC 32.5 g/dL (31.0-37.0); MCV 94.1 fL (80.0-100.0); Monocytes # (A) 0.5 k/uL (0-1.0); Monocytes % (A) 8 %; Neutrophils # (A) 2.8 k/uL (1.3-7.7); Neutrophils % (A) 50 %; Platelet Count 263 k/uL (150-450); RBC 3.35 m/uL (3.80-5.40); RDW 13.4 % (11.5-15.5); WBC 5.6 k/uL (3.8-10.6)
[2019-10-05 16:01] LABS: Albumin 4.5 g/dL (3.5-5.0); Calcium 9.4 mg/dL (8.4-10.2); Potassium 4.6 mmol/L (3.5-5.1); Total Bilirubin 0.6 mg/dL (0.2-1.3); Total Protein 7.5 g/dL (6.3-8.2)
--- NOTE | 2019-10-05 16:04 | XR ---
EXAMINATION TYPE: XR chest 1V portable DATE OF EXAM: 10/05/2019 COMPARISON: 07/18/2019 HISTORY: Shortness of breath TECHNIQUE: Single view of the chest is submitted. FINDINGS: Scattered senescent parenchymal changes noted. Hyperinflation compatible with COPD. Developing infiltrate right lower lobe is difficult to exclude. Correlate clinically. Heart size is stable. Mediastinal structures are stable and grossly unremarkable. No evidence for hilar prominence. Degenerative changes dorsal spine. IMPRESSION: 1. Developing infiltrate right lower lobe is difficult to exclude. Correlate clinically.
--- NOTE | 2019-10-05 16:12 | CT ---
EXAMINATION TYPE: CT brain wo con DATE OF EXAM: 10/05/2019 COMPARISON: MR brain 07/18/2019, CT brain 07/17/2019 HISTORY: AMS CT DLP: 1217.4 mGycm Automated exposure control for dose reduction was used. Helical imaging through the brain. FINDINGS: There is no hemorrhage or hydrocephalus. Periventricular white matter shows patchy low attenuation. C alvarium is intact. Paranasal sinuses and mastoid air cells as visualized show similar appearance. Co rtical atrophy is present. Focus of encephalomalacia at the left frontal region periventricular white matter is stable. IMPRESSION: STABLE EXAM, NO ACUTE ABNORMALITY. AGE-RELATED CHANGES OF ATROPHY AND PROBABLE CHRONIC SMALL VESSEL I SCHEMIA.
[2019-10-05] MEDS ORDERED: AZITHROMYCIN 500 MG in SODIUM CHLORIDE 0.9% 250 ML IVPB STA (17:15)
[2019-10-05] MEDS ORDERED: cefTRIAXone IN SWFI 1,000 MG/10 ML SYRINGE IVP STA (17:15)
[2019-10-05] MEDS ORDERED: NALOXONE 0.4 MG/ML 1 ML VIAL IV PRN (17:16)
[2019-10-05] MEDS ORDERED: ALBUTEROL NEBULIZED 2.5 MG/3 ML INHALATION PRN (17:40)
--- NOTE | 2019-10-05 17:49 | P.HPIM ---
History of Present Illness Patient is a 83-year-old female being admitted for altered mental status and stroke workout. Patient apparently does have baseline dementia which appears to be moderate. Patient recently started having several episodes of state he looks and unresponsiveness to the verbal stimuli of the family members. Patient was recently seen in the [facility] they referred her to a neurologist as an outpatient unable to see the neurologist at and daughter believes she can't wait to see an outpatient neurologist because of which she brought the patient to the hospital. I was unable to assess his orientation because of the head hearing problems barely able to get any kind of history from the patient patient appeared confused to me as a for her hearing problems but I discussed with the nurse evaluated the patient and patient was oriented 3 as per her. Patient doesn't have any fever chills patient doesn't have any leukocytosis chest x-ray was reviewed be by me and not impressive for pneumonia urease pending. Review of Systems REVIEW OF SYSTEMS: All other systems are negative except those mentioned above and review of systems is extremely limited by her hearing problems Past Medical History Past Medical History: Coronary Artery Disease (CAD) History of Any Multi-Drug Resistant Organisms: None Reported Past Surgical History: Heart Catheterization, Hysterectomy Additional Past Surgical History / Comment(s): cardiac stent, left ear drum repair, both cataracts surgery Past Anesthesia/Blood Transfusion Reactions: No Reported Reaction Past Psychological History: Depression Smoking Status: Former smoker Past Alcohol Use History: None Reported Past Drug Use History: None Reported - Past Family History Mother Additional Family Medical History / Comment(s): afer breaking hip Father Family Medical History: Cancer Additional Family Medical History / Comment(s): liver cancer Medications and Allergies Home Medications Medication Instructions Recorded Confirmed Type Albuterol Sulfate [Ventolin HFA] 2 puff INHALATION RT-QID PRN 07/17/19 10/05/19 History Gabapentin [Neurontin] 100 mg PO TID 07/17/19 10/05/19 History Latanoprost [Xalatan 0.005%] 1 drop BOTH EYES HS 07/17/19 10/05/19 History Cholecalciferol (Vitamin D3) 50 mcg PO DAILY 10/05/19 10/05/19 History [Vitamin D3] Clopidogrel [Plavix] 75 mg PO DAILY 10/05/19 10/05/19 History Famotidine [Pepcid] 40 mg PO DAILY 10/05/19 10/05/19 History Memantine [Namenda] 5 mg PO DAILY 10/05/19 10/05/19 History Oxybutynin Chloride 5 mg PO DAILY 10/05/19 10/05/19 History Zolpidem Tartrate [Ambien] 5 mg PO HS PRN 10/05/19 10/05/19 History Allergies Allergy/AdvReac Type Severity Reaction Status Date / Time aspirin Allergy Rash/Hives Verified 10/05/19 17:09 cefixime [From Suprax] Allergy Nausea & Verified 10/05/19 17:09 Vomiting ciprofloxacin [From Cipro] Allergy Unknown Verified 10/05/19 17:09 codeine Allergy Swelling Verified 10/05/19 17:09 ibuprofen [From Advil] Allergy Rash/Hives Verified 10/05/19 17:09 methylprednisolone Allergy Nausea & Verified 10/05/19 17:09 Vomiting Penicillins Allergy Rash/Hives Verified 10/05/19 17:09 prochlorperazine Allergy Unknown Verified 10/05/19 17:09 [From Compazine] tetracycline Allergy Rash/Hives Verified 10/05/19 17:09 Physical Exam Vitals: Vital Signs Temp Pulse Resp BP Pulse Ox 10/05/19 17:18 98 F 79 18 183/77 98 10/05/19 16:00 70 18 178/80 98 10/05/19 14:50 98.4 F 84 18 191/79 95 Intake and Output 10/05/19 10/05/19 10/05/19 06:59 14:59 22:59 Other: Weight 74 kg PHYSICAL EXAMINATION: GENERAL: The patient is alert , not in any acute distress. Thin built female HEENT: Pupils are round and equally reacting to light. EOMI. No scleral icterus. No conjunctival pallor. Normocephalic, atraumatic. No pharyngeal erythema. No thyromegaly. CARDIOVASCULAR: S1 and S2 present. No murmurs, rubs, or gallops. PULMONARY: Chest is clear to auscultation, no wheezing or crackles. ABDOMEN: Soft, nontender, nondistended, normoactive bowel sounds. No palpable organomegaly. MUSCULOSKELETAL: No joint swelling or deformity. EXTREMITIES: No cyanosis, clubbing, or pedal edema. NEUROLOGICAL: Gross neurological examination did not reveal any focal deficits. SKIN: No rashes. Results CBC & Chem 7: 10/05/19 15:43 10/05/19 15:43 Labs: Abnormal Lab Results - Last 24 Hours (Table) 10/05/19 10/05/19 Range/Units 15:43 15:43 RBC 3.35 L (3.80-5.40) m/uL Hgb 10.2 L (11.4-16.0) gm/dL Hct 31.6 L (34.0-46.0) % Sodium 128 L (137-145) mmol/L Carbon Dioxide 20 L (22-30) mmol/L BUN 18 H (7-17) mg/dL Creatinine 1.05 H (0.52-1.04) mg/dL Alkaline Phosphatase 150 H (38-126) U/L Assessment and Plan Plan: -Episodes of unresponsiveness, altered mental status: Neurology was consulted patient may need workup for stroke CT showed chronic microvascular ischemic changes. Although it encephalopathy cannot be completely ruled out. -Hyponatremia hypovolemic hyponatremia may be contributing to metabolic encephalopathy no evidence of infection at this time patient will be started on IV fluids and recheck the serum sodium tomorrow. -Acute renal failure prerenal azotemia continue with IV fluids recheck the kidney function tomorrow -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
[2019-10-05] MEDS ORDERED: hydrALAZINE HCL 50 MG TAB PO PRN (18:07)
[2019-10-05] MEDS: SODIUM CHLORIDE 0.9% 1,000 ML IV SCH (18:10)
[2019-10-05 18:14] LABS: Bacteria,Urine Occasional /hpf; RBC,Urine 5 /hpf (0-5); WBC,Urine 81 /hpf (0-5)
[2019-10-05 18:20] LABS: Appearance,Urine Clear (Clear); Bilirubin,Urine Negative (Negative); Color,Urine Yellow; Glucose,Urine (UA) Negative (Negative); Ketones,Urine Negative (Negative); Protein,Urine 1+ (Negative); Specific Gravity,Urine 1.005 (1.001-1.035)
[2019-10-05 18:21] LABS: Blood,Urine Moderate (Negative); Nitrite,Urine Negative (Negative); Urobilinogen,Urine <2.0 mg/dL (<2.0)
[2019-10-05 18:22] LABS: Leukocyte Esterase,Urine Large (Negative)
[2019-10-05] MEDS: LATANOPROST 0.005% OPHTH DROPS 2.5 ML BTL BOTH EYES SCH (20:01)
[2019-10-05] MEDS: HEPARIN SODIUM,PORCINE 5,000 UNIT/ML 1 ML VIAL SQ SCH (20:01)
[2019-10-05] MEDS: FAMOTIDINE 20 MG TAB PO SCH (20:01)
[2019-10-05] MEDS: ACETAMINOPHEN TAB 325 MG TAB PO PRN (20:01)
[2019-10-05] MEDS ORDERED: hydrALAZINE HCL 20 MG/ML 1 ML VIAL IVP PRN (22:06)
[2019-10-05] MEDS: hydrALAZINE HCL 20 MG/ML 1 ML VIAL IVP PRN (22:45)
[2019-10-06] MEDS: ACETAMINOPHEN TAB 325 MG TAB PO PRN (03:01)
[2019-10-06] MEDS: hydrALAZINE HCL 20 MG/ML 1 ML VIAL IVP PRN ×2 (03:02→08:47)
[2019-10-06] MEDS: SODIUM CHLORIDE 0.9% 1,000 ML IV SCH ×2 (05:47→20:55)
[2019-10-06 08:22] LABS: Calcium 9.3 mg/dL (8.4-10.2); Potassium 4.7 mmol/L (3.5-5.1)
[2019-10-06] MEDS: HEPARIN SODIUM,PORCINE 5,000 UNIT/ML 1 ML VIAL SQ SCH ×2 (08:37→20:54)
[2019-10-06] MEDS: CLOPIDOGREL 75 MG TAB PO SCH (08:37)
[2019-10-06] MEDS: FAMOTIDINE 20 MG TAB PO SCH ×2 (08:37→08:38)
[2019-10-06] MEDS: OXYBUTYNIN CHLORIDE 5 MG TAB PO SCH (08:37)
[2019-10-06] MEDS: MEMANTINE 5 MG TAB PO SCH (08:37)
[2019-10-06] MEDS ORDERED: LORazepam 2 MG/ML INJ IM STA (11:11)
[2019-10-06] MEDS ORDERED: LORazepam 2 MG/ML INJ ONE (11:13)
[2019-10-06] MEDS ORDERED: LORazepam 2 MG/ML INJ IV STA (11:21)
--- NOTE | 2019-10-06 14:05 | EEG ---
ELECTROENCEPHALOGRAM REPORT DATE OF SERVICE: 10/06/2019 PREAMBLE: This is an 83-year-old female with dementia, has been having seizure-type activity. This study is performed to evaluate for any epileptiform activity. EEG FINDINGS: This is a 21 channel routine EEG recorded utilizing 10/20 international system with referential and bipolar montages. The background consists of well-developed, but somewhat disorganized mixed frequencies of 8-9 Hz alpha, with some moderate voltage, theta and some delta activity. Background does not seem to be clearly reactive to eye opening or closing. Photic driving response was not clearly seen. A lot of myogenic artifact was seen, particularly during the first half of the study. Different stages of sleep were not seen. No focal or generalized epileptiform activity was seen. IMPRESSION: This is mildly abnormal EEG due to background disorganization and some slowing. This is suggestive of nonspecific generalized cerebral dysfunction, as can be seen with encephalopathy due to metabolic, degenerative or vascular cause. Clinical correlation is recommended. No definitive epileptiform activity was seen. MMODL / IJN: [id number] / MTDD
--- NOTE | 2019-10-06 16:50 | P.PN ---
Subjective 81-year-old female was admitted for evaluation for possible partial seizure as patient was having staring episodes. Patient was evaluated by neurology and EEG was opted which did not show any peptic from activity but there was an episode that felt like Absence seizure because of which patient received Ativan at that time discussed with the neurologist she believes patient will need to be started on antiseizure medication in spite of the EEG not showing any seizures.patient regarding stroke workup will be left to neurology. review of systems: Limited because of her for a healing issues All inpatient medications were reviewed and appropriate changes in these medications as dictated in the interval history and assessment and plan. Objective - Vital Signs Vital signs: Vital Signs Temp 97.7 F 10/06/19 12:50 Pulse 111 H 10/06/19 12:50 Resp 20 10/06/19 12:50 BP 139/64 10/06/19 12:50 Pulse Ox 96 10/06/19 12:50 Intake & Output 10/05/19 10/06/19 10/06/19 18:59 06:59 18:59 Intake Total 100 220 Balance 100 220 Weight 74 kg Intake: Oral 100 220 Other: Voiding Method Toilet Toilet # Voids 1 1 - Exam PHYSICAL EXAMINATION: GENERAL: The patient is alert , not in any acute distress. Thin built female HEENT: Pupils are round and equally reacting to light. EOMI. No scleral icterus. No conjunctival pallor. Normocephalic, atraumatic. No pharyngeal erythema. No thyromegaly. CARDIOVASCULAR: S1 and S2 present. No murmurs, rubs, or gallops. PULMONARY: Chest is clear to auscultation, no wheezing or crackles. ABDOMEN: Soft, nontender, nondistended, normoactive bowel sounds. No palpable organomegaly. MUSCULOSKELETAL: No joint swelling or deformity. EXTREMITIES: No cyanosis, clubbing, or pedal edema. NEUROLOGICAL: Gross neurological examination did not reveal any focal deficits. SKIN: No rashes. - Labs CBC & Chem 7: 10/05/19 15:43 10/06/19 07:25 Labs: Abnormal Lab Results - Last 24 Hours (Table) 10/05/19 10/06/19 Range/Units 17:34 07:25 Sodium 134 L (137-145) mmol/L Carbon Dioxide 20 L (22-30) mmol/L Glucose 112 H (74-99) mg/dL Urine WBC 81 H (0-5) /hpf Urine WBC Clumps Few H (None) /hpf Urine Bacteria Occasional H (None) /hpf Microbiology - Last 24 Hours (Table) 10/05/19 17:34 Urine Culture - Preliminary Urine,Catheterized Assessment and Plan Plan: -Episodes of unresponsiveness, altered mental status: Neurology elevated the further workup for stroke as per neurology and patient had an EEG which did not show any epileptiform focus better is significant concern of partial seizures because of which are neurology is recommending antiseizure medications -Hyponatremia hypovolemic hyponatremia may be contributing to metabolic encephalopathy no evidence of infection at this time improving with IV fluids -Acute renal failure prerenal azotemia continue with IV fluids improving with IV fluids -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
[2019-10-06 18:21] VITALS: RESP 16
--- NOTE | 2019-10-06 18:33 | P.CNNES ---
History of Present Illness Consult date: 10/06/19 Requesting physician: Matthew Garcia Reason for Consult: Altered mental status History of Present Illness: Patient is a 83-year-old female with relatively recent history of possible dementia, CAD, admitted yesterday because of altered mental status. It was reported that patient has been varying levels of consciousness. She was having episodes in which for 5 minutes she would become unresponsive. Patient had these episodes on and off for the last several days. She was initially seen at [facility] where she was admitted for one day and discharged with instruction to follow up with neurologist. They were unable to follow-up with a neurologist. Patient continued having these episodes. They did not want to wait to follow up with outpatient neurologist, therefore brought her to the ER. Patient was noted to be acting very strangely in the ER. Patient follows commands but she was alert and oriented 3 out of 4 in the ER. Patient was recently admitted on 10/02/2023 delirium. She had hyponatremia with acute kidney injury. Patient's sodium on arrival was 128. Slight elevation of renal markers. Chest x-ray showed developing infiltrate right lower lobe is difficult to exclude. Correlate clinically. CT head revealed stable exam, no acute abnormality. Age-related changes of atrophy and probable chronic small vessel ischemia. EKG shows normal sinus rhythm with left atrial enlargement. Patient had an EEG performed today, which revealed background disorganization and some slowing. This is suggestive of nonspecific generalized cerebral dysfunction may related to encephalopathy from metabolic, degenerative or vascular cause. Clinical correlation is recommended. No definitive epileptiform activity was seen. Patient's blood test shows normal WBC, hemoglobin 10.2, platelets 263. Sodium 128 on presentation, but [id number]. B12 462, folate 20.0, TSH is normal. Total cholesterol 186, LDL 80, HDL 90, triglycerides 79. UA showed large amount of leukocyte Estrace, 81 WBC, few clumps. Urine cultures negative. Patient was also recently admitted to the hospital on 07/17/2023 altered mental status, mental confusion and was felt to be related to encephalopathy. I had seen the patient at that time. Patient had B12, folate TSH checked. MRI of the brain revealed no acute process. Carotid Doppler showed no hemodynamically significant stenosis. Antegrade flow in both vertebral arteries. 2-D echo showed EF 55-60%. Left atrial size normal. No embolic source found. Patient was placed on Plavix. Patient apparently had witnessed seizure today at 10:36 AM lasting for 2 minutes and 23 seconds. She was clenching her jaw, tightening of hands and legs with jerking, irregular breathing and blowing, and eyes moving [id number]. Her blood pressure was 139/64, respiration 20, saturation 96% and temperature 97.7 axillary. Patient was sleepy after with limited response. Patient had a similar spell reported yesterday. Review of Systems ROS unobtainable: due to mental status Past Medical History Past Medical History: Coronary Artery Disease (CAD) History of Any Multi-Drug Resistant Organisms: None Reported Past Surgical History: Heart Catheterization, Hysterectomy Additional Past Surgical History / Comment(s): cardiac stent, left ear drum repair, both cataracts surgery Past Anesthesia/Blood Transfusion Reactions: No Reported Reaction Past Psychological History: Depression Smoking Status: Never smoker Past Alcohol Use History: None Reported Past Drug Use History: None Reported - Past Family History Mother Additional Family Medical History / Comment(s): afer breaking hip Father Family Medical History: Cancer Additional Family Medical History / Comment(s): liver cancer Medications and Allergies Home Medications Medication Instructions Recorded Confirmed Type Albuterol Sulfate [Ventolin HFA] 2 puff INHALATION RT-QID PRN 07/17/19 10/05/19 History Gabapentin [Neurontin] 100 mg PO TID 07/17/19 10/05/19 History Latanoprost [Xalatan 0.005%] 1 drop BOTH EYES HS 07/17/19 10/05/19 History Cholecalciferol (Vitamin D3) 50 mcg PO DAILY 10/05/19 10/05/19 History [Vitamin D3] Clopidogrel [Plavix] 75 mg PO DAILY 10/05/19 10/05/19 History Donepezil [Aricept] 5 mg PO HS 10/05/19 10/05/19 History Famotidine [Pepcid] 40 mg PO DAILY 10/05/19 10/05/19 History Memantine [Namenda] 5 mg PO DAILY 10/05/19 10/05/19 History Oxybutynin Chloride 5 mg PO DAILY 10/05/19 10/05/19 History Zolpidem Tartrate [Ambien] 5 mg PO HS PRN 10/05/19 10/05/19 History Allergies Allergy/AdvReac Type Severity Reaction Status Date / Time aspirin Allergy Rash/Hives Verified 10/05/19 17:09 cefixime [From Suprax] Allergy Nausea & Verified 10/05/19 17:09 Vomiting ciprofloxacin [From Cipro] Allergy Unknown Verified 10/05/19 17:09 codeine Allergy Swelling Verified 10/05/19 17:09 ibuprofen [From Advil] Allergy Rash/Hives Verified 10/05/19 17:09 methylprednisolone Allergy Nausea & Verified 10/05/19 17:09 Vomiting Penicillins Allergy Rash/Hives Verified 10/05/19 17:09 prochlorperazine Allergy Unknown Verified 10/05/19 17:09 [From Compazine] tetracycline Allergy Rash/Hives Verified 10/05/19 17:09 Physical Examination - Vital Signs Vital Signs: Vital Signs Temp Pulse Pulse Resp BP BP Pulse Ox 10/06/19 12:50 97.7 F 111 H 20 139/64 96 10/06/19 09:45 98 131/68 10/06/19 06:59 98.2 F 103 H 16 167/61 96 10/06/19 05:29 131/57 10/06/19 03:05 174/84 10/06/19 01:50 97.9 F 116 H 173/71 97 10/05/19 21:30 115 H 198/74 10/05/19 18:45 98.2 F 94 19 186/81 95 10/05/19 18:20 97.5 F L 89 18 185/49 95 10/05/19 18:13 98.5 F 85 18 190/97 97 Intake and Output 10/06/19 10/06/19 10/06/19 06:59 14:59 22:59 Intake Total 220 Balance 220 Intake: Oral 220 Other: Voiding Method Toilet Toilet Toilet # Voids 1 1 On examination patient is an elderly female, who appears obviously delirious. She is very restless, short attention span, concentration. Patient is very easily distractible. broadcast maintenance technician was trying to do EEG and patient would constantly try to rip off the leads.. Speech has nasal tone. Patient able to tell her name. Patient able to tell the current year 2019, but does not know the month. She knows her date of . States her name is Bianca. She does not know the name of the building or what type of building she is in. She states she lives in [place] but could not tell the name of the state. Patient's face is symmetric. Tongue protrude in the midline. Visual landry difficult to assess with lack of cooperation. Pupils are round and reactive to light, extraocular muscles are intact. No nystagmus. There is no pronator drift. The strength appears normal in the arms and legs. Patient did walk to the bathroom. Reflexes are 1+ and plantars are downgoing. Tone is equal. Sensations probably equal, although unreliable. Gait not checked. Per nurse patient did walk to the bathroom fairly well with slight assist. There is no obvious bruit, S1 and S2 audible, peripheral pulses present. Chest is clear. Abdomen soft nontender. Results - Laboratory Findings CBC and BMP: 10/05/19 15:43 10/06/19 07:25 Abnormal Lab Findings: Abnormal Labs 10/05/19 10/05/19 10/05/19 15:43 15:43 17:34 RBC 3.35 L Hgb 10.2 L Hct 31.6 L Sodium 128 L Carbon Dioxide 20 L BUN 18 H Creatinine 1.05 H Glucose Alkaline Phosphatase 150 H Urine WBC 81 H Urine WBC Clumps Few H Urine Bacteria Occasional H 10/06/19 07:25 RBC Hgb Hct Sodium 134 L Carbon Dioxide 20 L BUN Creatinine Glucose 112 H Alkaline Phosphatase Urine WBC Urine WBC Clumps Urine Bacteria Assessment and Plan Assessment: * Recurrent episodes of unresponsiveness/staring spells. Patient had witnessed seizure in the hospital. Patient has possible partial seizures. EEG did not reveal any obvious epileptiform abnormality. * Delirium, possible underlying dementia. Rule out any underlying metabolic problem. Chest x-ray was abnormal, rule out pneumonia. * Hypertension Plan: * Patient has witnessed seizure in the hospital. Her EEG did not reveal any epileptiform activity. However we will empirically place her on antiepileptic medication because of recurrent spells and a witnessed seizure. Patient has delirium, almost appears manicy at times. We will try Depakote sprinkles 125 mg 3 times a day. Hopefully it will help with her seizures, mood stabilization, and may increase appetite. Caution with drowsiness. Need to watch liver functions and blood counts in 3 months and every 6 months. * Discussed with primary attending. * We will follow clinically.
[2019-10-06] MEDS: LATANOPROST 0.005% OPHTH DROPS 2.5 ML BTL BOTH EYES SCH (20:54)
[2019-10-06] MEDS: DIVALPROEX SPRINKLE 125 MG CAP.SPRINK PO SCH ×2 (20:54→20:57)
[2019-10-06] MEDS ORDERED: DIVALPROEX 250 MG TABLET.DR PO SCH (21:00)
[2019-10-07] MEDS: FAMOTIDINE 20 MG TAB PO SCH (08:13)
[2019-10-07] MEDS: DIVALPROEX SPRINKLE 125 MG CAP.SPRINK PO SCH ×2 (08:14→18:55)
[2019-10-07] MEDS: MEMANTINE 5 MG TAB PO SCH (08:14)
[2019-10-07] MEDS: OXYBUTYNIN CHLORIDE 5 MG TAB PO SCH (08:14)
[2019-10-07] MEDS: CLOPIDOGREL 75 MG TAB PO SCH (08:14)
[2019-10-07] MEDS: HEPARIN SODIUM,PORCINE 5,000 UNIT/ML 1 ML VIAL SQ SCH (08:14)
[2019-10-07 09:19] LABS: Calcium 9.1 mg/dL (8.4-10.2); Potassium 4.1 mmol/L (3.5-5.1)
[2019-10-07] MEDS: ACETAMINOPHEN TAB 325 MG TAB PO PRN (14:23)
--- NOTE | 2019-10-07 14:54 | P.PN ---
Subjective Progress Note Date: 10/07/19 Patient was seen for a follow-up. Patient is doing much better. Patient has not had any further seizure or seizure type spells since started on Depakote. Appears very pleasant. Objective - Vital Signs Vital signs: Vital Signs Temp 98.1 F 10/07/19 14:44 Pulse 90 10/07/19 14:44 Resp 18 10/07/19 14:44 BP 142/59 10/07/19 14:44 Pulse Ox 95 10/07/19 14:44 Intake & Output 10/06/19 10/07/19 10/07/19 18:59 06:59 18:59 Intake Total 220 Balance 220 Intake: Oral 220 Other: Voiding Method Toilet Toilet Toilet # Voids 1 1 2 - Exam Patient is alert and awake. Patient states she is in [place] in [place]. She knows that she is in the hospital, could not tell the name. She states it is October 2019. Patient did walk around without any issue. - Labs CBC & Chem 7: 10/05/19 15:43 10/07/19 08:36 Labs: Abnormal Lab Results - Last 24 Hours (Table) 10/07/19 Range/Units 08:36 Sodium 132 L (137-145) mmol/L Carbon Dioxide 20 L (22-30) mmol/L Creatinine 1.10 H (0.52-1.04) mg/dL Glucose 110 H (74-99) mg/dL Microbiology - Last 24 Hours (Table) 10/05/19 18:00 Blood Culture - Preliminary Blood No Growth after 24 hours 10/05/19 17:34 Urine Culture - Preliminary Urine,Catheterized Gram Neg Bacilli Assessment and Plan Assessment: * Recurrent episodes of unresponsiveness/staring spells. Patient had witnessed seizure in the hospital. Patient has possible partial seizures. EEG did not reveal any obvious epileptiform abnormality. * Delirium, possible underlying dementia. Rule out any underlying metabolic problem. Chest x-ray was abnormal, rule out pneumonia. * Hypertension Plan: * Continue Depakote sprinkles 125 mg 3 times a day. Hopefully it will help with her seizures, mood stabilization, and may increase appetite. Caution with drowsiness. Need to watch liver functions and blood counts in 3 months and every 6 months. * Neurologically clear otherwise.
--- NOTE | 2019-10-07 18:20 | P.PN ---
Subjective Progress Note Date: 10/07/19 Principal diagnosis: 81-year-old female was admitted for evaluation for possible partial seizure as patient was having staring episodes. Patient was evaluated by neurology and EEG was opted which did not show any peptic from activity but there was an episode that felt like Absence seizure because of which patient received Ativan at that time discussed with the neurologist she believes patient will need to be started on antiseizure medication in spite of the EEG not showing any seizures.patient regarding stroke workup will be left to neurology. 10/07/2019 Patient is seen and evaluated in follow up and appears to be much more alert today. Neurology following. Patient was started on Depakote sprinkles and no further seizure like activity has been noted. Social work following and arranging for patient to go to [facility], [place], operated by [facility] on discharge. Patient was tested for Covid 19 and was negative. Currently no reports of chest pain, shortness of breath, or palpitations. Patient is afebrile. No reports of nausea or vomiting and patient is tolerating diet. Objective - Vital Signs Vital signs: Vital Signs Temp 98.1 F 10/07/19 14:44 Pulse 90 10/07/19 15:54 Resp 18 10/07/19 15:54 BP 142/59 10/07/19 14:44 Pulse Ox 95 10/07/19 14:44 Intake & Output 10/06/19 10/07/19 10/07/19 18:59 06:59 18:59 Intake Total 220 Balance 220 Intake: Oral 220 Other: Voiding Method Toilet Toilet Toilet # Voids 1 1 2 - Exam GENERAL: The patient is alert , not in any acute distress. Thin built female HEENT: Pupils are round and equally reacting to light. EOMI. No scleral icterus. No conjunctival pallor. Normocephalic, atraumatic. No pharyngeal erythema. No thyromegaly. CARDIOVASCULAR: S1 and S2 present. No murmurs, rubs, or gallops. PULMONARY: Chest is clear to auscultation, no wheezing or crackles. ABDOMEN: Soft, nontender, nondistended, normoactive bowel sounds. No palpable organomegaly. MUSCULOSKELETAL: No joint swelling or deformity. EXTREMITIES: No cyanosis, clubbing, or pedal edema. NEUROLOGICAL: Gross neurological examination did not reveal any focal deficits. SKIN: No rashes. - Labs CBC & Chem 7: 10/05/19 15:43 10/07/19 08:36 Labs: Abnormal Lab Results - Last 24 Hours (Table) 10/07/19 Range/Units 08:36 Sodium 132 L (137-145) mmol/L Carbon Dioxide 20 L (22-30) mmol/L Creatinine 1.10 H (0.52-1.04) mg/dL Glucose 110 H (74-99) mg/dL Microbiology - Last 24 Hours (Table) 10/05/19 18:00 Blood Culture - Preliminary Blood No Growth after 24 hours 10/05/19 17:34 Urine Culture - Preliminary Urine,Catheterized Gram Neg Bacilli Assessment and Plan Assessment: -Episodes of unresponsiveness, altered mental status: Neurology following with significant concern of partial seizures, patient initiated on depakote sprinkles. no further seizure like activity noted. -Hyponatremia hypovolemic hyponatremia may be contributing to metabolic encephalopathy, current sodium is 132. -Acute renal failure prerenal azotemia continue with IV fluids improving with IV fluids -Possible vascular dementia -Coronary artery disease -Hypertension -Depression -Generalized deconditioning Plan: continue current medications. Patient will be going to [facility], [place], operated by [facility] for continued PT/OT therapy. Patient to continue with Depakote sprinkles at this time. Continue to monitor closely for seizure-like activity. Further recommendations to follow. Anticipate discharge in 24 hours.
[2019-10-07] MEDS: SODIUM CHLORIDE 0.9% 1,000 ML IV SCH (18:54)
[2019-10-07] MEDS ORDERED: DIVALPROEX SPRINKLE 125 MG CAP.SPRINK ONE (21:00)
[2019-10-07] MEDS ORDERED: HEPARIN SODIUM,PORCINE 5,000 UNIT/ML 1 ML VIAL ONE (21:00)
[2019-10-08] MEDS: CLOPIDOGREL 75 MG TAB PO SCH (07:24)
[2019-10-08] MEDS: OXYBUTYNIN CHLORIDE 5 MG TAB PO SCH (07:24)
[2019-10-08] MEDS: HEPARIN SODIUM,PORCINE 5,000 UNIT/ML 1 ML VIAL SQ SCH ×2 (07:24→12:30)
[2019-10-08] MEDS: MEMANTINE 5 MG TAB PO SCH (07:24)
[2019-10-08] MEDS: DIVALPROEX SPRINKLE 125 MG CAP.SPRINK PO SCH ×2 (09:00→12:18)
[2019-10-08] MEDS ORDERED: FAMOTIDINE 20 MG TAB PO SCH (09:00)
[2019-10-08] MEDS: LATANOPROST 0.005% OPHTH DROPS 2.5 ML BTL BOTH EYES SCH (12:18)
[2019-10-08] MEDS: SODIUM CHLORIDE 0.9% 1,000 ML IV SCH (12:19)
--- NOTE | 2019-10-08 13:40 | P.DS ---
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 Patient will follow-up with Dr. Alonzo upon discharge. Total time taken is 35 minutes. History of present illness This is an 83-year-old female who was recently admitted with possible partial seizures and was being closely monitored. Patient was seen and evaluated by Neurology and underwent EEG showing no epileptiform activity although was started on Depakote sprinkles with no further seizure-like activity or episodes noted. Patient's mentation improved although continues to be weak and will be going to [facility] for continued physical therapy. Patient's urine culture finalized showing E. coli And will continue on Macrobid twice daily for the next 7 days and then may discontinue. Patient continues to deny any reports of dysuria or retention. Currently no reports of chest pain, shortness of breath, or palpitations. Patient is afebrile. No reports of nausea or vomiting and patient is tolerating diet. Patient continues to need encouragement with eating as she has a poor appetite. Guarded prognosis. On exam vital signs are stable. Temp is 98.5F, pulse is 90, respirations are 18, blood pressure is 127/80, oxygen saturation is 100% on room air. Cardio S1, S2 are muffled. Respiratory shows diminished breath sounds at the bases with No wheezing or rhonchi noted. Abdomen is soft and nontender. Nervous system shows mild diffuse weakness. Please refer to medication reconciliation sheet for a list of medications. Patient Condition at Discharge: Fair Plan - Discharge Summary Discharge Rx Participant: No New Discharge Prescriptions: New Divalproex Sprinkle [Depakote Sprinkle] 125 mg PO TID cap.sprink Nitrofurantoin Monohyd/M-Cryst [Macrobid] 100 mg PO Q12HR 7 Days #14 cap Acetaminophen Tab [Tylenol] 650 mg PO Q6HR PRN tab PRN Reason: Mild Pain Or Fever > 100.5 Megestrol [Megace] 40 mg PO DAILY #4 tablet Continue Latanoprost [Xalatan 0.005%] 1 drop BOTH EYES HS Albuterol Sulfate [Ventolin HFA] 2 puff INHALATION RT-QID PRN PRN Reason: Shortness Of Breath Oxybutynin Chloride 5 mg PO DAILY Memantine [Namenda] 5 mg PO DAILY Clopidogrel [Plavix] 75 mg PO DAILY Cholecalciferol (Vitamin D3) [Vitamin D3] 50 mcg PO DAILY Famotidine [Pepcid] 40 mg PO DAILY Donepezil [Aricept] 5 mg PO HS Discontinued Gabapentin [Neurontin] 100 mg PO TID Zolpidem Tartrate [Ambien] 5 mg PO HS PRN PRN Reason: Insomnia Discharge Medication List Albuterol Sulfate [Ventolin HFA] 2 puff INHALATION RT-QID PRN 07/17/19 [History] Latanoprost [Xalatan 0.005%] 1 drop BOTH EYES HS 07/17/19 [History] Cholecalciferol (Vitamin D3) [Vitamin D3] 50 mcg PO DAILY 10/05/19 [History] Clopidogrel [Plavix] 75 mg PO DAILY 10/05/19 [History] Donepezil [Aricept] 5 mg PO HS 10/05/19 [History] Famotidine [Pepcid] 40 mg PO DAILY 10/05/19 [History] Memantine [Namenda] 5 mg PO DAILY 10/05/19 [History] Oxybutynin Chloride 5 mg PO DAILY 10/05/19 [History] Acetaminophen Tab [Tylenol] 650 mg PO Q6HR PRN tab 10/08/19 [Rx] Divalproex Sprinkle [Depakote Sprinkle] 125 mg PO TID cap.sprink 10/08/19 [Rx] Megestrol [Megace] 40 mg PO DAILY #4 tablet 10/08/19 [Rx] Nitrofurantoin Monohyd/M-Cryst [Macrobid] 100 mg PO Q12HR 7 Days #14 cap 10/08/19 [Rx] Follow up Appointment(s)/Referral(s): Rolando Thompson MD [Primary Care Provider] - 1-2 days (ECF) Activity/Diet/Wound Care/Special Instructions: Patient is going to [facility] Activity as tolerated Continue with antibiotics for 7 days then may discontinue Continue current diet Discharge Disposition: TRANSFER TO SNF/ECF
--- NOTE | 2019-10-08 15:06 | P.PN ---
Subjective Progress Note Date: 10/08/19 Patient was seen for a follow-up. Patient has not had further seizures. However she has been very lethargic today, likely due to side effect of Depakote. Objective - Vital Signs Vital signs: Vital Signs Temp 98.5 F 10/08/19 07:00 Pulse 91 10/08/19 08:00 Resp 16 10/08/19 08:00 BP 133/67 10/08/19 07:00 Pulse Ox 100 10/08/19 07:00 Intake & Output 10/07/19 10/08/19 10/08/19 18:59 06:59 18:59 Output Total 950 Balance -950 Output: Urine 950 Other: Voiding Method Toilet Toilet Toilet # Voids 2 4 1 - Exam Patient was somnolent today, did not want to be examined. Exam deferred. - Labs CBC & Chem 7: 10/05/19 15:43 10/07/19 08:36 Labs: Microbiology - Last 24 Hours (Table) 10/05/19 18:00 Blood Culture - Preliminary Blood No Growth after 48 hours 10/05/19 17:34 Urine Culture - Final Urine,Catheterized Escherichia coli Assessment and Plan Assessment: * Recurrent episodes of unresponsiveness/staring spells. Patient had witnessed seizure in the hospital. Patient has possible partial seizures. EEG did not reveal any obvious epileptiform abnormality. * Delirium, possible underlying dementia. Rule out any underlying metabolic problem. Chest x-ray was abnormal, rule out pneumonia. * Hypertension Plan: * Because of drowsiness, we will decrease Depakote sprinkles 125 mg twice a day. Hopefully it will help with her seizures, mood stabilization, and may increase appetite. Caution with drowsiness. Need to watch liver functions and blood counts in 3 months and every 6 months. * Recommend follow-up with neurologist as outpatient. * Neurologically clear otherwise.
[2019-10-08] MEDS ORDERED: DIVALPROEX SPRINKLE 125 MG CAP.SPRINK PO SCH (21:00)
[2019-10-09 08:10] VITALS: BP 168/74; PULSE 91; TEMP 98.3
--- NOTE | 2019-10-09 14:33 | CDI ---
Documentation Clarification Form Date: 10/09/2019 02:21:39 PM From: Shy Suazo Phone: If you have a question about this query, please contact Isabel Walsh Radio Station Operator at [phone] between 8am and 5pm. Admit Date: 10/05/2019 05:17:00 PM Patient Name: Kelsey Wheeler Visit Number: [id number] Discharge Date: 10/08/2019 04:47:00 PM ATTENTION: The Clinical Documentation Specialists (CDI) and [facility] Coding Staff appreciate your assistance in clarifying documentation. Please respond to the clarification below the line at the bottom and electronically sign. The CDI & [facility] Coding staff will review the response and follow-up if needed. Please note: Queries are made part of the Legal Health Record. If you have any questions, please contact the author of this message via ITS. Dr. Gabriel Mckeon Per DCS final urine culture showing E coli continue Macrobid twice daily for 7 days. Please clarify the clinical significance of E coli in urine Clinical Indicators: Ecoli in urine culture Vital Signs: 98.4 F, 84 18 191/79, 116 95 RA WBC: 5.6 Urinalysis: Urine Culture: E coli Treatment antibiotic Antibiotics Macrobid Please document the clinical significance of E coli in uring UTI Pyelonephritis Renal Stone Contaminated specimen Other, please specify Unable to determine Present on Admission: Yes No Symptomatically bacteriuria MTDD
== END 2019-10-08 16:47 | DRG 640 ==
LOC: EC 14:46 → 4SSUR 17:17
PROVIDERS: ADMIT Internal Medicine; ATTEND Internal Medicine
DX: E87.1 Hypo-osmolality and hyponatremia (principal); G93.41 Metabolic encephalopathy; N17.9 Acute kidney failure, unspecified; E86.1 Hypovolemia; F01.50 Vascular dementia, unspecified severity, without behavioral disturbance, psychotic disturbance, mood disturbance, and anxiety; F32.9 Major depressive disorder, single episode, unspecified; G40.A09 Absence epileptic syndrome, not intractable, without status epilepticus; I10 Essential (primary) hypertension; I25.10 Atherosclerotic heart disease of native coronary artery without angina pectoris; Z79.02 Long term (current) use of antithrombotics/antiplatelets; Z79.899 Other long term (current) drug therapy; Z80.0 Family history of malignant neoplasm of digestive organs; Z87.891 Personal history of nicotine dependence; Z90.710 Acquired absence of both cervix and uterus; Z11.59 Encounter for screening for other viral diseases; Z95.5 Presence of coronary angioplasty implant and graft; Z98.42 Cataract extraction status, left eye; Z98.41 Cataract extraction status, right eye; Z88.6 Allergy status to analgesic agent; Z88.1 Allergy status to other antibiotic agents; Z88.5 Allergy status to narcotic agent; Z88.0 Allergy status to penicillin; Z88.8 Allergy status to other drugs, medicaments and biological substances; B96.20 Unspecified Escherichia coli [E. coli] as the cause of diseases classified elsewhere; R82.71 Bacteriuria
CPT/HCPCS: 36415; 70450; 71045; 80048; 80053; 81001; 83735; 85025; 87040; 87077; 87086; 87186; 93005; 95816; 96374; 99285